=== PATIENT | male | born 1960 | race Caucasian/White ===

== ENCOUNTER 2019-10-27 13:00 | Emergency (ER) | payer BC, SELFPAY ==
[2019-10-27 13:38] VITALS: BP 142/85; PULSE 83; RESP 20; TEMP 36.8; O2SAT 98; BMI 29.5
[2019-10-27 13:40] VITALS: BP 142/85; PULSE 83; RESP 20; TEMP 36.8; O2SAT 98; BMI 29.6
--- NOTE | 2019-10-27 14:16 | HMH.EDUTC ---
[facility] Disposition Clinical Impression: Corneal abrasion, right Qualifiers: Encounter type: initial encounter Qualified Code(s): S05.01XA - Injury of conjunctiva and corneal abrasion without foreign body, right eye, initial encounter Disposition: Home, Self-Care Condition on Discharge: Good Instructions: DI for Corneal Abrasion, Corneal Abrasion Additional Instructions: Don't wear your contacts for at least another week. Use the Sulfacetamide eye drops as directed that I gave to you. Apply 2 drops to the right eye four times per day for the next 7 days. Follow up with your regular doctor. Follow up with your eye doctor. If you have any worsening symtoms, please go to the ER. Referrals: Greg Aguilar MD [Primary Care Provider] - Time of Disposition: 14:35 Medical Decision Making - Medical Records Medical records reviewed: No: I reviewed the patient's medical records. - Sharif Inquiry Pt receiving controlled substance: No Vital Signs: 10/27/19 13:38 10/27/19 14:40 Temperature 98.2 F 98.2 F Temperature Source Oral Pulse Rate 83 Pulse Rate [Left Brachial] 83 Respiratory Rate 20 20 Blood Pressure 142/85 H Blood Pressure [Left Arm] 142/85 H Blood Pressure Mean [Left Arm] 104 Blood Pressure Source [Left Arm] Automatic Cuff Blood Pressure Position [Left Arm] Sitting 02 Sat by Pulse Oximetry 98 Oxygen Delivery Method Room Air Orders (Tests/Meds): ED MEDICATIONS Discontinued Medications Generic Name Dose Route Start Last Admin Trade Name Freq PRN Reason Stop Dose Admin Eye Irrigation Solution 120 ml 10/27/19 14:10/27/19 14:53 Eye Wash Irrigation Soln 118ml Bottle OP 10/27/19 14:30 1 applicatio ONCE ONE Administration Fluorescein Sodium 1 mg 10/27/19 14:10/27/19 14:52 Fluorescein Sodium 1mg Strip OP 10/27/19 14:30 1 mg ONCE ONE Administration Sulfacetamide Sodium 0 ml 10/27/19 14:10/27/19 14:53 Sulf-10% Opth Soln 15ml OP 10/27/19 14:30 2 drops ONCE ONE Administration Tetracaine HCl 0 ml 10/27/19 14:10/27/19 14:53 Tetracaine 0.5% Ophth Solution 15ml OP 10/27/19 14:30 1 drop ONCE ONE Administration [facility] HPI - General Stated complaint: pain in eye Time Seen by Provider: 10/27/19 14:16 Mode of Arrival: Ambulatory Source of Information: Patient Limitations: No Limitations Description of Symptoms (Recalled from Triage Doc. by RN): PATIENT STATES THAT HIS MASK RUBBED HIS RIGHT EYE YESTERDAY, AND SINCE THEN HE HAS C/O REDNESS, PAIN, ITCHING, AND SENSITIVITY TO LIGHT IN THAT EYE. NO OTHER PROBLEMS NOTED - History of Present Illness Provider Complaint: He states that 2 days ago, he accidentily poked himself in the right eye with his face mask. Since then he has had photosensitivity of the eye and redness of the eye. He denies any decreased vision. - Related Data Allergies Allergy/AdvReac Type Severity Reaction Status Date / Time oxycodone [OXYCODONE] Allergy Unknown Verified 10/27/19 13:40 [facility] History - Hepatitis A Screen Attestation statement:: This patient has been screened for Hepatitis A risk factors. I have reviewed the patient's past medical history: Yes Medical History: Reports:: Cancer (SKIN), Diabetes Mellitus Type 2 Denies:: Diabetes Mellitus Type 1, Hypertension, MRSA Laterality Cases: Bilateral: Other Other Surgeries: Yes: Other Amputation: No Fractures: No - Social History Smoking Status: Never smoker Alcohol Intake: never Substance Use Type: denies use Occupational Status: other Housing: house Household Members: family Family Hx:: Cancer, Diabetes ROS Obtained: Yes All systems reviewed & no additional complaints - Constitutional Constitutional: Denies chills, Denies fever(s) - Eyes Eyes: Reports as per HPI Physical Exam - General General appearance: alert, in no apparent distress - Head Head exam: atraumatic, normocephalic, normal inspection - Eye Eye exa
[2019-10-27 14:40] VITALS: BP 142/85; PULSE 83; RESP 20; TEMP 36.8; O2SAT 98
== END 2019-10-27 14:54 | disposition home or self-care (01) ==
LOC: ER 13:18 → UTC 13:22
PROVIDERS: Emergency Provider Nurse Practitioner Family; PCP Family Medicine
DX: S05.01XA Injury of conjunctiva and corneal abrasion without foreign body, right eye, initial encounter (principal); W22.8XXA Striking against or struck by other objects, initial encounter; E11.9 Type 2 diabetes mellitus without complications; Z88.5 Allergy status to narcotic agent
CPT/HCPCS: 99201

== ENCOUNTER → 2020-06-27 10:01 | Outpatient (CLI) | payer BC, SELFPAY ==
[2020-06-27 11:08] LABS: Basophils # 0.1 K/mm3 (0-0.2); Basophils % 0.8 % (0.1-2.0); Eosinophils # 0.2 K/mm3 (0.0-0.4); Eosinophils % 2.7 % (0.1-12.0); Hematocrit 45.9 % (42.0-52.0); Hemoglobin 15.6 g/dL (14.1-18.0); Lymphocytes # 2.2 K/mm3 (0.7-4.5); Lymphocytes % 29.9 % (10-50); Mean Corpuscular Hemoglobin 30.8 pg (27.0-31.2); Mean Corpuscular Volume 90.6 fl (80-94); Mean Platelet Volume 7.6 fl (7.4-10.4); Monocytes # 0.4 K/mm3 (0.1-1.0); Monocytes % 5.7 % (1.7-9.3); Neutrophils # 4.5 K/mm3 (1.8-7.8); Neutrophils % 60.9 % (37.0-80.0); Platelet Count 261 K/mm3 (142-424); Red Blood Count 5.06 M/mm3 (4.60-6.20); Red Cell Distribution Width 14.1 % (11.5-17.5); White Blood Count 7.5 K/mm3 (4.8-10.8)
== END ==
PROVIDERS: PCP Family Medicine; Visit Provider Family Medicine
DX: Z20.822 Contact with and (suspected) exposure to COVID-19 (principal)
CPT/HCPCS: 36415; 85025; 87275; 87276; U0003

== ENCOUNTER 2021-05-03 05:35 | Observation (INO) | payer BC, SELFPAY ==
[2021-05-03] VITALS (30 sets, daily range): BP systolic 110–186; BP diastolic 64–115; PULSE 65–91; RESP 12–21; TEMP 36.7–37.4; O2SAT 90–98; BMI 29.5; BMI 29.9
--- NOTE | 2021-05-03 | IR_ITS ---
APPROVED REPORT Patient Location: Inpatient Bun Icer: NATALYA Anne RT (R) PROCEDURES Left heart catheterization Left ventriculogram Selective coronary angiogram Drug-eluting stent deployment to the proximal mid and distal dominant right coronary in a contiguous manner Drug-eluting stent deployment to the proximal and mid LAD in a contiguous manner Angioplasty to a large first diagonal artery INDICATION Coronary artery disease, Unstable angina/acute coronary syndrome, Informed consent was obtained prior to the procedure. COMPLICATIONS NONE Estimated Blood Loss: LESS THAN 10 ML TECHNIQUE One percent lidocaine used to anesthetize the right anterior aspect of the wrist. The right radial artery was accessed via the Seldinger technique. A 6 Wolof sheath was placed in the right radial artery. 2.5 mg of verapamil, 800 mcg of nitroglycerin, 1mg Lidocaine and 5000 U Heparin were given through the arterial sheath. The trap catheter was also used to perform left heart catheterization, left ventriculogram and selective coronary angiogram. At the end of the diagnostic angiogram therapeutic heparin was administered giving a therapeutic ACT and a Poppa 1 guide catheter was placed on the right coronary artery where a Choice PT extra-support wire was placed distally. A 3.5 x 38 mm resolute Jber stent was deployed at 20 vernon reducing the severe stenosis to 0%. An additional 3.5 x 26 mm resolute Jber stent was placed proximal to this yet still overlapping and deployed at 24 vernon reducing the stenosis. VALENCIA-3 flow was present before and after the procedure. At the end the procedure the apparatus was removed from the right coronary artery and placed in the left anterior descending artery where a wire was placed down the LAD. A 3 mm x 38 mm dioxn point drug-eluting stent was then deployed at 20 vernon reducing the stenosis to 0%. Distally there was additional stenosis at the first diagonal artery bifurcation therefore a 3 mm x 23 mm dixon point drug-eluting stent was then deployed at 20 vernon distal to the first stent yet still overlapping its distal aspect. The balloon was brought back and deployed at 22 vernon to mesh the 2 stents. An additional Choice PT wire was placed into the first diagonal artery where a 2.5 x 12 mm balloon was deployed at 14 vernon for 30 seconds reducing the stenosis to 0%. VALENCIA-3 flow was present before and after the procedure. After achieving excellent angiograph results the apparatus was removed the sheath was removed good hemostasis was achieved using TR banding patient was transferred to the postop already in stable condition ANGIOGRAPHIC RESULTS The left main artery Normal The left anterior descending artery Has a proximal 90% stenosis which extends past a large first diagonal artery of approximately 70 to 80%. The remaining LAD has mild luminal irregularities while the first diagonal artery has an ostial 70 to 80% stenosis The circumflex artery Is a nondominant vessel and has proximal mid vessel and distal diffuse 30% stenoses The right coronary artery Is a large dominant vessel with proximal 30% stenoses mid vessel 30 to 40% stenosis and a distal concentric 70% stenosis The VALENTE ventriculogram reveals Normal 65% The left ventricular end-diastolic pressure Moderate to severely elevated at 25 to 30 mmHg IMPRESSION Severe two-vessel coronary disease as described above with a disease also involving a bifurcating first diagonal artery Successful two-vessel reconstruction as described above Normal ejection fraction Moderate to severely elevated LVEDP consistent with diastolic dysfunction PLAN 1. Dual antiplatelet therapy 2. Risk factor modification 3. Cardiac rehabili
--- NOTE | 2021-05-03 05:29 | ECG_ITS ---
APPROVED REPORT Exam: Resting ECG HR:88 bpm ECG Measurements Heart Rate [address] 158 P 38 QRSd 98 QRS 55 QT 370 T 38 QTc 447 Conclusion Normal sinus rhythm Incomplete right bundle branch block Borderline ECG Electronically signed by : Scout Alegria MD 05/03/2021 14:20:25
[2021-05-03 05:46] LABS: Basophils # 0.1 K/mm3 (0-0.2); Basophils % 1.5 % (0.1-2.0); Eosinophils # 0.2 K/mm3 (0.0-0.4); Eosinophils % 3.4 % (0.1-12.0); Hematocrit 45.4 % (42.0-52.0); Hemoglobin 15.5 g/dL (14.1-18.0); Lymphocytes # 2.5 K/mm3 (0.7-4.5); Lymphocytes % 36.6 % (10-50); Mean Corpuscular HGB Conc 34.2 g/dL (31.8-35.4); Mean Corpuscular Volume 90.8 fl (80-94); Mean Platelet Volume 8.4 fl (7.4-10.4); Monocytes # 0.5 K/mm3 (0.1-1.0); Monocytes % 6.7 % (1.7-9.3); Neutrophils # 3.5 K/mm3 (1.8-7.8); Neutrophils % 51.7 % (37.0-80.0); Platelet Count 297 K/mm3 (142-424); Red Cell Distribution Width 13.2 % (11.5-17.5); White Blood Count 6.9 K/mm3 (4.8-10.8)
--- NOTE | 2021-05-03 05:53 | ECG_ITS ---
APPROVED REPORT Exam: Resting ECG HR:68 bpm ECG Measurements Heart Rate 68 AXES ND 148 P 54 QRSd 96 QRS 30 QT 398 T 30 QTc 423 Conclusion Normal sinus rhythm Normal ECG Electronically signed by : Scout Alegria MD 05/03/2021 14:20:16
[2021-05-03 05:56] LABS: Chloride 94 mmol/L (98-107); Potassium 3.9 mmoL/L (3.5-5.1); Sodium 133 mmol/L (136-145)
[2021-05-03 05:59] LABS: Alanine Aminotransferase 22 U/L (12-78); Albumin Level 4.3 g/dl (3.5-5.0); Albumin/Globulin Ratio 1.4 (1.1-1.8); Alkaline Phosphatase 114 U/L (38-126); Anion Gap 11.9 mEq/L (5-15); Aspartate Amino Transferase 26 U/L (17-59); Bilirubin,Total 0.4 mg/dl (0.2-1.3); Blood Urea Nitrogen 14 mg/dl (9-20); Carbon Dioxide 31 mmol/L (22.0-30.0); Creatinine Clearance Estimated 101 mL/min (50-200); Estimated Glomerular Filt Rate 76 ml/min (>60); GFR (African American) 92 ML/MIN (>60); Total Protein,Serum 7.3 g/dl (6.3-8.2)
--- NOTE | 2021-05-03 05:59 | XR_ITS ---
PROCEDURE INFORMATION: Exam: XR Chest Exam date and time: 05/03/2021 5:59 AM Age: 60 years old Clinical indication: Sternal or substernal pain; Additional info: Cp TECHNIQUE: Imaging protocol: XR of the chest. Views: 1 view. COMPARISON: CR CXR CHEST(2 VIEWS-NOT PORTABLE) 11/05/2014 1:52 PM FINDINGS: Lungs: No focal airspace disease. Pleural spaces: Unremarkable. No pleural effusion. No pneumothorax. Heart/Mediastinum: Cardiomediastinal silhouette is within normal limits. Bones/joints: Unremarkable. IMPRESSION: No acute cardiopulmonary abnormality.
[2021-05-03 06:00] LABS: Calcium 9.4 mg/dl (8.4-10.2)
[2021-05-03 06:05] LABS: C-Reactive Protein 14.3 mg/L (0-4)
[2021-05-03 06:13] LABS: Glucose 438 mg/dl (74-100)
[2021-05-03 06:14] LABS: Troponin I < 0.01 ng/ml (0.00-0.034)
[2021-05-03 06:15] LABS: Coronavirus 19, PCR Not Detected (NotDetected); Influenza A, PCR Not Detected (NotDetected); Influenza B, PCR Not Detected (NotDetected)
[2021-05-03 06:17] LABS: Erythrocyte Sedimentation Rate 24 mm/hr (0-20); Free T4 (Free Thyroxine) 1.19 ng/dl (0.78-2.19); Procalcitonin 0.084 ng/mL (0.0-2.0)
--- NOTE | 2021-05-03 06:20 | PC.NURSE ---
Dr. Rodriguez notified of critical glucose
[2021-05-03 06:32] LABS: Thyroid Stimulating Hormone 1.54 uIU/mL (0.465-4.68)
--- NOTE | 2021-05-03 06:34 | HMH.EDCP ---
ED Disposition Clinical Impression: Chest pain Qualifiers: Chest pain type: precordial pain Qualified Code(s): R07.2 - Precordial pain Diabetes mellitus Qualifiers: Diabetes mellitus type: type 2 Diabetes mellitus laborer marine terminal insulin use: unspecified senior care insulin use status Diabetes mellitus complication status: with other specified complication Qualified Code(s): E11.69 - Type 2 diabetes mellitus with other specified complication Disposition: Admitted as Observation Condition on Discharge: Good - Critical Care Critical Care Time: No Attestation: On 05/03/21, the high probability of a clinically significant, sudden or life threatening deterioration of the following system(s) required my full and direct attention, intervention and personal management. The time I documented below is in addition to time spent performing reported procedures but includes the following listed in this critical care notation. Medical Decision Making - Medical Records Medical records reviewed: Yes: I reviewed the patient's medical records. - Sharif Inquiry Pt receiving controlled substance: No Vital Signs: 05/03/21 05:35 05/03/21 05:50 05/03/21 06:30 Temperature 98.4 F Temperature Source Oral Pulse Rate 65 80 Pulse Rate [Right] 91 H Respiratory Rate 16 16 Blood Pressure 110/64 129/73 Blood Pressure [Right Arm] 186/115 H Blood Pressure Mean 89 Blood Pressure Mean [Right Arm] 138 02 Sat by Pulse Oximetry 97 93 L 93 L Oxygen Delivery Method 05/03/21 06:39 Temperature Temperature Source Pulse Rate 84 Pulse Rate [Right] Respiratory Rate 19 Blood Pressure 144/84 H Blood Pressure [Right Arm] Blood Pressure Mean 94 Blood Pressure Mean [Right Arm] 02 Sat by Pulse Oximetry 94 L Oxygen Delivery Method Room Air - Lab Data Lab results reviewed: Yes: I reviewed the patient's lab results. Lab Results 05/03/21 05:41: WBC 6.9, RBC 5.00, Hgb 15.5, Hct 45.4, MCV 90.8, MCH 31.0, MCHC 34.2, RDW 13.2, Plt Count 297, MPV 8.4, Neut % (Auto) 51.7, Lymph % (Auto) 36.6, [place] % (Auto) 6.7, Eos % (Auto) 3.4, Baso % (Auto) 1.5, Neut # (Auto) 3.5, Lymph # (Auto) 2.5, [place] # (Auto) 0.5, Eos # (Auto) 0.2, Baso # (Auto) 0.1, ESR 24 H 05/03/21 05:41: Sodium 133 L, Potassium 3.9, Chloride 94 L, Carbon Dioxide 31 H, Anion Gap 11.9, BUN 14, Creatinine 1.00, Estimated Creat Clear 101, Estimated GFR 76, Est GFR ( Amer) 92, Glucose 438 H*, Calcium 9.4, Total Bilirubin 0.4, AST 26, ALT 22, Alkaline Phosphatase 114, Troponin I < 0.01, C-Reactive Protein 14.3 H, Total Protein 7.3, Albumin 4.3, Globulin 3.0, Albumin/Globulin Ratio 1.4, TSH 1.54 05/03/21 05:41: Free T4 1.19 05/03/21 05:41: Procalcitonin 0.084 05/03/21 05:41: Hemoglobin A1c > 14.0 H 05/03/21 06:05: SARS-CoV-2 (PCR) Not detected, Influenza A Untype (PCR) Not detected, Influenza Type B (PCR) Not detected Result diagrams: 05/03/21 05:41 05/03/21 05:41 Orders (Tests/Meds): ED MEDICATIONS Generic Name Dose Route Start Last Admin Trade Name Freq PRN Reason Stop Dose Admin Sodium Chloride 1,000 mls @ 999 mls/hr 05/03/21 05:45 05/03/21 05:44 Sod Chlor 0.9% 1000ml Bag IV 05/03/21 06:45 999 mls/hr .Q1H1M AMADEO Administration Discontinued Medications Generic Name Dose Route Start Last Admin Trade Name Freq PRN Reason Stop Dose Admin Aspirin 324 mg 05/03/21 05:40 05/03/21 05:44 Aspirin 81mg Chewable Tablet PO 05/03/21 05:41 324 mg ONCE ONE Administration Nitroglycerin 0.4 mg 05/03/21 05:40 05/03/21 05:45 Nitroglycerin 0.4mg Sl Tablet SL 05/03/21 05:41 0.4 mg ONCE ONE Administration Nitroglycerin 1 gm 05/03/21 06:37 05/03/21 06:38 Nitroglycerin 1 Gm Ointment TD 05/03/21 06:38 1 gm ONCE ONE Administration ORDERS Category Date Time Status Troponin I Q3H Lab 05/03/21 08:45 Ordered Troponin I Q3H Lab 05/03/21 11:45 Ordered - Radiology Data #1 Image(s): Chest Image Reviewed: Yes I have reviewed ra
[2021-05-03 06:38] LABS: Hemoglobin A1C > 14.0 % (4.0-6.0)
--- NOTE | 2021-05-03 06:44 | PC.NURSE ---
paged dr pulido @ this time
--- NOTE | 2021-05-03 06:48 | PC.NURSE ---
charles on phone with dr pulido @ this time
--- NOTE | 2021-05-03 07:06 | PC.NURSE ---
Report called to 2nd floor nurse Marie Maldonado RN
--- NOTE | 2021-05-03 07:20 | HMH.PHAINT ---
MEDICATION RECONCILIATION COMPLETED ON PATIENT USING EXTERNAL FILL HISTORY FROM PHARMACY. -KENNY PACE, BENID
--- NOTE | 2021-05-03 07:24 | PC.NURSE ---
pt was accepted by [facility] per Dr[facility] Rodriguez
--- NOTE | 2021-05-03 07:41 | CA_ITS ---
APPROVED REPORT EXAM: Comprehensive 2D, Doppler, and color-flow Echocardiogram Tipple Mechanic: Vonda Rdz, RCS, RVS Ht: 5 ft 9 in Wt: 203lbs BSA: 2.08 BP: 144/84 mmHg Indications: CP, HTN, DM, Family Hx-HD 2D Dimensions Aortic Root 0.00 cm M: 3.1 - 3.7 LA Volume 35.50 mL Left Atrium 3.03 cm M: 3.0 - 4.0 LA Volume Index 17.06 mL/m2 (M/F) 16-34 LVOT 1.98 cm (M/F) 1.5-2.5 M-Mode Dimensions RVDd 2.09 cm (0.9-2.6) LA Diam 3.59 cm (1.9-4.0) LVDd 4.83 cm (3.5-5.7) Ao Diam 3.27 cm (2.0-3.7) LVDs 2.78 cm (3.5-5.7) IVSd 1.05 cm (0.6-1.1) PWd 1.13 cm (0.6-1.1) EF (Teich) 73.40% EPSs 0.24 cm FS 42.40% EDV (Teich) 109.10 mL TAPSE 2.39 (<1.7) ESV (Teich) 29.00 mL LV Diastology E Decel Time 183.00 (160-240 msec) E/A Ratio 0.93 MED E' 6.50 (< 7 cm/sec) MED A' 11.50 cm/s E'/MED E' Ratio 11.17 (>14) LAT E' 10.20 (<10 cm/sec) LAT A' 12.90 cm/s E/LAT E' Ratio 7.12 (>14) Aortic Valve LVOT Max 153.00 (70-110 cm/s) LVOT VTI 25.06 cm AoV Peak Guillermo. 174.00 (50-130 cm/s) AO Peak GR. 12.20 mmHg AO Mean GR. 5.90 (<5 mmHg) AO VTI 27.43 (18-25 cm) DANII (VTI) 2.81 (2.5-4.5 cm2) Mitral Valve MV A Velocity 78.00 (40-130 cm/s) E/A Ratio 0.93 MV Decel. Time 183.00 (160-240 ms) Pulmonary Valve PV Peak Velocity 109.00 (50-150 cm/s) Tricuspid Valve TR P. Velocity 182.00 cm/s Left Ventricle Left atrium is mildly enlarged, left ventricle is normal size, mild concentric left ventricular hypertrophy, visually estimated ejection fraction 55% with no regional wall motion abnormality, grade 1 diastolic dysfunction seen without tissue Doppler evidence of raise left atrial pressure. Right Ventricle Right atrium and right ventricle are normal size and contractility. Aortic Valve Aortic valve is minimally thickened and fibrosed, there is no aortic stenosis or aortic insufficiency. Mitral Valve Mitral valve is grossly normal, there is trace mitral regurgitation. Tricuspid Valve Tricuspid grossly normal, there is trace tricuspid regurgitation, tricuspid regurgitation jet velocity is inadequate for calculation of the right ventricular systolic pressure. Pulmonic Valve Pulmonic valve is poorly visualized. Great Vessels Aortic root is normal size. Inferior vena cava normal size with normal inspiratory collapse. Pericardium No significant pericardial effusion noted. Conclusion 1. Normal left ventricular size, mild concentric left ventricular hypertrophy, visually estimated ejection fraction 55% with no regional wall motion abnormality, grade 1 diastolic dysfunction seen without tissue Doppler evidence of raise left atrial pressure. 2. Trace mitral and tricuspid regurgitation. 3. No significant pericardial effusion noted. 4. Inferior vena cava is normal size with normal inspiratory collapse. Electronically signed by : Valdemar Quevedo MD 05/03/2021 20:29:11
--- NOTE | 2021-05-03 09:29 | HMH.CNCARD ---
History of Present Illness Consult date: 05/03/21 Requesting physician: Greg Aguilar Consult reason: chest pain Chief complaint: unstable angina History of present illness: 60-year-old male admitted to [facility] with unstable angina on 05/03/21. Patient states prior to arriving to the ED, he was having chest tightness for the past 1 to 2 days. Patient states throughout the night the chest tightness has progressively becoming worse which was accompanied with dyspnea. Patient states once he arrived to the ED and was given a nitroglycerin, his chest pain was relieved. Patient denies chest pain, tightness or pressure at this time. Patient denies dyspnea. Patient states he has been under a lot of stress at home and states he does that this is mostly due to stress. Patient does have a history of diabetes type 2 which is uncontrolled at this time. Patient states his diabetes had been controlled but since home stress has become worse, he has not been managing his diabetes very well. Upon his lab results, A1 C was noted to be greater than 14. Glucose was over 400. This is being managed by PCP. Serial troponins were negative x1. Thyroid panel was within normal. Patient denies swelling in the lower extremities. Patient states he has no known history of coronary disease. Patient did state 20 years ago he did undergo left heart catheterization in which he was told his coronary arteries looked good. He was then diagnosed with acid reflux at that time. Patient does have history of hypertension which is controlled. Patient denies tobacco use or alcohol use. Patient denies nausea, vomiting or diarrhea. Chest x-ray revealed no acute cardiopulmonary abnormalities. Initial EKG revealed nonspecific ST and T wave changes with a heart rate of 80 bpm. monitoring engineer reveals sinus rhythm with no ectopy with a heart rate of 78 bpm. Patient states no known history of coronary artery disease and family history. [facility] History I have reviewed the patient's past medical history: Yes Medical History: Reports:: Diabetes Mellitus Type 2, Hypertension Denies:: Cancer, Diabetes Mellitus Type 1, MRSA *Have you ever received a pneumonia vaccine?: No *Have you received a flu vaccine this season?: No Laterality Cases: Bilateral: Other Other Surgeries: Yes: Other Amputation: No Fractures: No - *Social History Smoking Status: Never smoker Alcohol Intake: never Substance Use Type: denies use *Occupational Status:: employed Housing: house Household Members: family *Travel in the last 8 weeks: Outside the [facility] Family Hx:: Cancer, Diabetes Meds Home Medications Medication Instructions Recorded Confirmed Type Trazodone HCl 100 mg PO HS 05/03/21 05/03/21 History Allergies Allergy/AdvReac Type Severity Reaction Status Date / Time oxycodone [OXYCODONE] Allergy Unknown Verified 10/27/19 13:40 Exam Vital signs and Labs for Last 24 Hours: Temp Pulse Resp BP Pulse Ox 98.4 F 86 21 146/75 H 95 05/03/21 08:03 05/03/21 08:03 05/03/21 08:03 05/03/21 08:03 05/03/21 07:37 Laboratory Results - last 24 hr 05/03/21 05:41: WBC 6.9, RBC 5.00, Hgb 15.5, Hct 45.4, MCV 90.8, MCH 31.0, MCHC 34.2, RDW 13.2, Plt Count 297, MPV 8.4, Neut % (Auto) 51.7, Lymph % (Auto) 36.6, [place] % (Auto) 6.7, Eos % (Auto) 3.4, Baso % (Auto) 1.5, Neut # (Auto) 3.5, Lymph # (Auto) 2.5, [place] # (Auto) 0.5, Eos # (Auto) 0.2, Baso # (Auto) 0.1, ESR 24 H 05/03/21 05:41: Sodium 133 L, Potassium 3.9, Chloride 94 L, Carbon Dioxide 31 H, Anion Gap 11.9, BUN 14, Creatinine 1.00, Estimated Creat Clear 101, Estimated GFR 76, Est GFR ( Amer) 92, Glucose 438 H*, Calcium 9.4, Total Bilirubin 0.4, AST 26, ALT 22, Alkaline Phosphatase 114, Troponin I < 0.01, C-Reactive Protein 14.3 H, Total Protein 7.3, Albumin 4.3, Globulin 3.0, Albumin/Globulin Ratio 1.4, TSH 1.54 05/03/21 05:41: Free T4 1.19 05/03/21 05:41: Procalcitonin 0.08
[2021-05-03 09:52] LABS: Troponin I < 0.01 ng/ml (0.00-0.034)
[2021-05-03 11:35] LABS: Troponin I < 0.01 ng/ml (0.00-0.034)
[2021-05-03 14:24] LABS: CATHL Activated Clotting Time > 400 SEC (74-125)
--- NOTE | 2021-05-03 15:13 | HMH.HP ---
*Admission Date: 05/03/21 <Mary Huitron - 05/03/21 15:45> *Chief complaint: chest pain <Mary Huitron - 05/03/21 15:45> *History of present illness: History of present illness: 60-year-old male admitted to [facility] with unstable angina on 05/03/21. Patient states prior to arriving to the ED, he was having chest tightness for the past 1 to 2 days. Patient states throughout the night the chest tightness has progressively becoming worse which was accompanied with dyspnea. Patient states once he arrived to the ED and was given a nitroglycerin, his chest pain was relieved. Patient denies chest pain, tightness or pressure at this time. Patient denies dyspnea. Patient states he has been under a lot of stress at home and states he does that this is mostly due to stress. Patient does have a history of diabetes type 2 which is uncontrolled at this time. Patient states his diabetes had been controlled but since home stress has become worse, he has not been managing his diabetes very well. Upon his lab results, A1 C was noted to be greater than 14. Glucose was over 400. This is being managed by PCP. Serial troponins were negative x1. Thyroid panel was within normal. Patient denies swelling in the lower extremities. Patient states he has no known history of coronary disease. Patient did state 20 years ago he did undergo left heart catheterization in which he was told his coronary arteries looked good. He was then diagnosed with acid reflux at that time. Patient does have history of hypertension which is controlled. Patient denies tobacco use or alcohol use. Patient denies nausea, vomiting or diarrhea. Chest x-ray revealed no acute cardiopulmonary abnormalities. Initial EKG revealed nonspecific ST and T wave changes with a heart rate of 80 bpm. monitoring coordinator reveals sinus rhythm with no ectopy with a heart rate of 78 bpm. Patient states no known history of coronary artery disease and family history. The above as per cardiology Mr. Cash is a 60-year-old male with a history of GERD, hypertension, sleep apnea, and hyperuricemia who presented to [facility] for evaluation after ongoing chest discomfort throughout the night. See above note by cardiology. At the time of this exam patient is comfortable and sitting on the side of the bed eating his breakfast. He denies chest pain and shortness of breath. Cardiology has seen him and a cardiac cath has been planned. Laboratory data reveals a normal CBC. Glucose is elevated at 438 with an A1c greater than 14. Troponin I is normal. Chest x-ray reveals no acute cardiopulmonary abnormality. Echocardiogram is pending. EKG shows normal sinus rhythm, incomplete right bundle branch block. <Mary Huitron 05/03/21 15:45> [facility] History Medical History: Reports:: Diabetes Mellitus Type 2, Gastroesophageal Reflux Disease(GERD), Hypertension Denies:: Cancer, Diabetes Mellitus Type 1, MRSA <ElanaMary 05/03/21 15:45> *Have you ever received a pneumonia vaccine?: No <Mary Huitron 05/03/21 15:45> *Have you received a flu vaccine this season?: No <Mary Huitron 05/03/21 15:45> Comment:: Allergies, sleep apnea, sinus issues. Gout <ElanaMary 05/03/21 15:45> Laterality Cases: Bilateral: Other <Mary Huitron 05/03/21 15:45> Other Surgeries: Yes: Other <Mary Huitron 05/03/21 15:45> Amputation: No <Mary Huitron 05/03/21 15:45> Fractures: No <Mary Huitron 05/03/21 15:45> Comment: Sinus cyst removed; tubes placed in ears multiple times. Right shoulder surgery in 2008. 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 <Mary Huitron 05/03/21 15:45> - *Social History Smoking Status: Never smoker <Mary Huitron 05/03/21 15:45> Alcohol Intake: never <Mary Huitron 05/03/21 15:45> Substance Use Type: denies use, prescription drug <Mary Huitron 05/03/21 15:45> *Occupational Status:: employed <Mary Huitron 05/03/21 15:45> [employer]
[2021-05-03 17:33] LABS: POC Glucose,Bedside 397 (70-110)
--- NOTE | 2021-05-03 18:27 | PC.NURSE ---
Patient was an admit from the ER to room 215. Patient is NSR on the monitor and on room air. Patient is up ad-onesimo. Cardiology performed a heart cath, patient had 4 stents placed. Right radial site, clean dry and intact. 16 ml of iar removed from radial band. Alert and oriented times four. Call light and phone in reach and bed in lowest position. Will continue to monitor.
[2021-05-03 21:37] LABS: POC Glucose,Bedside 266 (70-110)
--- NOTE | 2021-05-03 22:22 | HMH.PHAVTE ---
[facility] Pharmacy VTE Monitoring - Patient Demographics Admission date: 05/03/21 Report Date: 05/03/21 Time: 22:22 Allergies/Adverse Reactions: Patient Allergies oxycodone [OXYCODONE] Allergy (Unknown, Verified 10/27/19 13:40) Height: 1.75 m Weight: 92.136 kg Patient Problems: Current Active Problems Chest pain (Acute) Diabetes mellitus (Acute) HTN (hypertension) (Acute) GERD (gastroesophageal reflux disease) (Acute) Uncontrolled diabetes mellitus (Acute) Situational stress (Acute) - VTE Risk Labs: VTE Related Lab Results Hgb 15.5 g/dL (14.1-18.0) 05/03/21 05:41 Hct 45.4 % (42.0-52.0) 05/03/21 05:41 Plt Count 297 K/mm3 (142-424) 05/03/21 05:41 BUN 14 mg/dl (9-20) 05/03/21 05:41 Creatinine 1.00 mg/dl (0.66-1.25) 05/03/21 05:41 Estimated Creat Clear 101 mL/min (50-200) 05/03/21 05:41 VTE Risk Level: Low Risk Clinical Trial Participant: No - Prophylaxis VTE Prophylaxis Ordered?: Yes Types of VTE Prophylaxis: Pharmacological Pharmacologic Type: Other (BRILINTA)
[2021-05-04] VITALS: BP 134/86; PULSE 80; PULSE 81; RESP 19; TEMP 37.2; O2SAT 94
[2021-05-04 04:00] VITALS: BP 140/70; PULSE 80; PULSE 81; RESP 20; TEMP 37.3; O2SAT 100
[2021-05-04 06:18] LABS: Basophils # 0.1 K/mm3 (0-0.2); Basophils % 0.5 % (0.1-2.0); Eosinophils # 0.2 K/mm3 (0.0-0.4); Eosinophils % 1.7 % (0.1-12.0); Hematocrit 40.7 % (42.0-52.0); Hemoglobin 13.9 g/dL (14.1-18.0); Lymphocytes # 1.9 K/mm3 (0.7-4.5); Lymphocytes % 17.2 % (10-50); Mean Corpuscular HGB Conc 34.2 g/dL (31.8-35.4); Mean Corpuscular Volume 90.4 fl (80-94); Mean Platelet Volume 8.7 fl (7.4-10.4); Monocytes # 0.6 K/mm3 (0.1-1.0); Monocytes % 5.6 % (1.7-9.3); Neutrophils # 8.1 K/mm3 (1.8-7.8); Platelet Count 303 K/mm3 (142-424); Red Cell Distribution Width 13.2 % (11.5-17.5); White Blood Count 10.8 K/mm3 (4.8-10.8)
[2021-05-04 06:36] LABS: Anion Gap 6.6 mEq/L (5-15); Blood Urea Nitrogen 11 mg/dl (9-20); Calcium 9.1 mg/dl (8.4-10.2); Carbon Dioxide 30 mmol/L (22.0-30.0); Chloride 101 mmol/L (98-107); Creatinine Clearance Estimated 114 mL/min (50-200); Estimated Glomerular Filt Rate 86 ml/min (>60); GFR (African American) 104 ML/MIN (>60); Glucose 276 mg/dl (74-100); Magnesium 1.8 mg/dl (1.6-2.3); Potassium 4.6 mmoL/L (3.5-5.1); Sodium 133 mmol/L (136-145)
[2021-05-04 07:16] LABS: Cholesterol 180 mg/dl (140-200); HDL Cholesterol 30 mg/dl (40-60); Triglycerides 395 mg/dl (30-150); VLDL Cholesterol 79 mg/dL (0-40)
[2021-05-04 07:27] LABS: Direct LDL Cholesterol 76.35 mg/dL (100-129)
[2021-05-04 08:00] VITALS: BP 120/72; PULSE 90; RESP 18; TEMP 36.7; O2SAT 96
[2021-05-04 08:13] LABS: POC Glucose,Bedside 270 (70-110)
--- NOTE | 2021-05-04 09:11 | HMH.ACPN2 ---
<Mary Huitron - Last Filed: 05/04/21 09:11> Internal Medicine - PN: Subj *Date: 05/04/21 *Time: 09:11 Interval history: Patient denies chest pain and shortness of breath. He is anxious to go home. He slept very little. He is hungry for breakfast and diet has been ordered. He has been out of bed without difficulty. Exam Vital signs and Labs for Last 24 Hours: Temp Pulse Resp BP Pulse Ox 98.0 F 90 18 120/72 96 05/04/21 08:00 05/04/21 08:00 05/04/21 08:00 05/04/21 08:00 05/04/21 08:00 Laboratory Results - last 24 hr 05/03/21 08:45: Troponin I < 0.01 05/03/21 10:54: Troponin I < 0.01 05/03/21 13:26: Activated Clotting Time > 400 H* 05/03/21 17:13: POC Glucose 397 H* 05/03/21 21:04: POC Glucose 266 H 05/04/21 05:35: POC Glucose 270 H 05/04/21 05:50: WBC 10.8 D, RBC 4.50 L, Hgb 13.9 L, Hct 40.7 L, MCV 90.4, MCH 31.0, MCHC 34.2, RDW 13.2, Plt Count 303, MPV 8.7, Neut % (Auto) 75.0, Lymph % (Auto) 17.2, [place] % (Auto) 5.6, Eos % (Auto) 1.7, Baso % (Auto) 0.5, Neut # (Auto) 8.1 H, Lymph # (Auto) 1.9, [place] # (Auto) 0.6, Eos # (Auto) 0.2, Baso # (Auto) 0.1 05/04/21 05:50: Sodium 133 L, Potassium 4.6, Chloride 101, Carbon Dioxide 30, Anion Gap 6.6, BUN 11, Creatinine 0.90, Estimated Creat Clear 114, Estimated GFR 86, Est GFR ( Amer) 104, Glucose 276 H, Calcium 9.1, Magnesium 1.8 05/04/21 05:50: Triglycerides 395 H, Cholesterol 180, LDL Cholesterol Direct 76.35 L, VLDL Cholesterol 79 H, HDL Cholesterol 30 L, Cholesterol/HDL Ratio 6.0 H I & O for Last 24 hours: Intake & Output 05/01/21 05/02/21 05/03/21 05/04/21 11:59 11:59 11:59 11:59 Intake Total 0 / 0 600 / 600 Balance 0 / 0 600 / 600 Weight 203 lb 2 oz 202 lb 13.204 oz - Constitutional no acute distress Comments: Sitting on bedside and appears comfortable - *Routine Respiratory Exam Present: crackles (Few crackles in right base) - *Routine Cardiovascular Exam Present: RRR - *Routine Abdominal Exam Present: soft, normoactive bowel sounds. 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 chcf insulin use status Diabetes mellitus complication status: with other specified complication Qualified Code(s): E11.69 - Type 2 diabetes mellitus with other specified complication Category: Medical Code(s): E11.9 - Type 2 diabetes mellitus without complications (4) GERD (gastroesophageal reflux disease) Status: Acute Category: Medical Code(s): K21.9 - Gastro-esophageal reflux disease without esophagitis (5) Uncontrolled diabetes mellitus Status: Acute Category: Medical Code(s): E11.65 - Type 2 diabetes mellitus with hyperglycemia (6) Situational stress Status: Acute Category: Medical Code(s): F43.9 - Reaction to severe stress, unspecified - Assessment and plan all Dx Assessment and Plan for all problems:: Home with cardiology approval. Meds as per cardiology.....diet And compliance have been emphasized with patient <Greg Aguilar - Last Filed: 06/24/21 18:00> Internal Medicine - PN: Subj *Date: 06/24/21 *Time: 17:59 Exam Vital signs and Labs for Last 24 Hours: Temp Pulse Resp BP Pulse Ox 98.0 F 90 18 120/72 96 05/04/21 08:00 05/04/21 08:00 05/04/21 08:00 05/04/21 08:00 05/04/21 08:00 Assessment and Plan (1) HTN (hypertension) Status: Chronic Qualifiers: Hypertension type: primary hypertension
--- NOTE | 2021-05-04 09:27 | HMH.PNCARD ---
Subjective Date: 05/04/21 Time: 09:00 Principal diagnosis: Angina Interval history: 60-year-old male admitted to [facility] on [facility] 03, 2021 with unstable angina. Patient did undergo left heart catheterization yesterday which revealed severe two-vessel coronary artery disease involving the bifurcation first diagonal artery. 6 full two-vessel reconstruction. Patient was noted to have moderate to severely elevated LVEDP consistent with diastolic dysfunction. Patient was prescribed Lasix and Aldactone due to diastolic dysfunction and moderate to severely elevated LVEDP. Patient is on standard medications for heart disease and diastolic dysfunction. Patient does have uncontrolled diabetes. Lengthy discussion with patient regarding the need to control his diabetes due to the effects of uncontrolled diabetes on the heart. Patient verbalized understanding and states due to stress within his family, he has not taken very good care of himself. Right radial access from heart cath noted with dressing dry and intact. Patient denies pain of the right wrist. bus monitor reveals sinus rhythm with a heart rate of 78 bpm. Blood pressure stable. Echocardiogram was performed which revealed EF 55% with no regional wall motion abnormality, grade 1 diastolic dysfunction. Trace MR and TR noted. Patient was also started on statin for hyperlipidemia. LDL goal <55. Encouraged weight loss and exercise. Echo:Conclusion 1. Normal left ventricular size, mild concentric left ventricular hypertrophy, visually estimated ejection fraction 55% with no regional wall motion abnormality, grade 1 diastolic dysfunction seen without tissue Doppler evidence of raise left atrial pressure. 2. Trace mitral and tricuspid regurgitation. 3. No significant pericardial effusion noted. 4. Inferior vena cava is normal size with normal inspiratory collapse. [facility]: ANGIOGRAPHIC RESULTS The left main artery Normal The left anterior descending artery Has a proximal 90% stenosis which extends past a large first diagonal artery of approximately 70 to 80%. The remaining LAD has mild luminal irregularities while the first diagonal artery has an ostial 70 to 80% stenosis The circumflex artery Is a nondominant vessel and has proximal mid vessel and distal diffuse 30% stenoses The right coronary artery Is a large dominant vessel with proximal 30% stenoses mid vessel 30 to 40% stenosis and a distal concentric 70% stenosis The VALENTE ventriculogram reveals Normal 65% The left ventricular end-diastolic pressure Moderate to severely elevated at 25 to 30 mmHg IMPRESSION Severe two-vessel coronary disease as described above with a disease also involving a bifurcating first diagonal artery Successful two-vessel reconstruction as described above Normal ejection fraction Moderate to severely elevated LVEDP consistent with diastolic dysfunction PLAN 1. Dual antiplatelet therapy 2. Risk factor modification 3. Cardiac rehabilitation 4. Beta-blockers and JACKELINE inhibitors 5. LDL less than 55 to be achieved with high intensity statin 6. Avoidance of tobacco products Exam Vital signs and Labs for Last 24 Hours: Temp Pulse Resp BP Pulse Ox 98.0 F 90 18 120/72 96 05/04/21 08:00 05/04/21 08:00 05/04/21 08:00 05/04/21 08:00 05/04/21 08:00 Laboratory Results - last 24 hr 05/03/21 08:45: Troponin I < 0.01 05/03/21 10:54: Troponin I < 0.01 05/03/21 13:26: Activated Clotting Time > 400 H* 05/03/21 17:13: POC Glucose 397 H* 05/03/21 21:04: POC Glucose 266 H 05/04/21 05:35: POC Glucose 270 H 05/04/21 05:50: WBC 10.8 D, RBC 4.50 L, Hgb 13.9 L, Hct 40.7 L, MCV 90.4, MCH 31.0, MCHC 34.2, RDW 13.2, Plt Count 303, MPV 8.7, Neut % (Auto) 75.0, Lymph % (Auto) 17.2, [place] % (Auto) 5.6, Eos % (Auto) 1.7, Baso % (Auto) 0.5, Neut # (Auto) 8.1 H, Lymph # (Auto) 1.9, [place] # (Auto) 0.6, Eos # (Auto) 0.2, Baso # (Auto) 0.1 05/04/21 05:50: Sodium 133 L, P
--- NOTE | 2021-05-04 09:34 | HMH.PHACLD ---
Sea Cash has received discharge medication counseling on the following medications: PATIENT IS BEING DISCHARGED WITH PRESCRIPTIONS FOR ASPIRIN 81 MG EC DAILY, BRILINTA 90 MG BID, CARVEDIOL 12.5 MG BID, LISINOPRIL 5 MG BID, AND ATORVASTATIN 40 MG HS. MD ALSO STARTED LASIX 40 MG DAILY, SYNJARDY XR MG, AND SPIRONOLACTONE 25 MG DAILY.
--- NOTE | 2021-05-09 14:59 | HMH.DCSUM ---
General - General Admission date:: 05/03/21 <Greg Aguilar - 07/03/21 22:17> 05/03/21 <BartoloromeliaKaley - 05/09/21 15:07> Discharge date: 06/03/21 <Kaley Moore - 05/09/21 15:07> HPI HPI: History of present illness: 60-year-old male admitted to [facility] with unstable angina on 05/03/21. Patient states prior to arriving to the ED, he was having chest tightness for the past 1 to 2 days. Patient states throughout the night the chest tightness has progressively becoming worse which was accompanied with dyspnea. Patient states once he arrived to the ED and was given a nitroglycerin, his chest pain was relieved. Patient denies chest pain, tightness or pressure at this time. Patient denies dyspnea. Patient states he has been under a lot of stress at home and states he does that this is mostly due to stress. Patient does have a history of diabetes type 2 which is uncontrolled at this time. Patient states his diabetes had been controlled but since home stress has become worse, he has not been managing his diabetes very well. Upon his lab results, A1 C was noted to be greater than 14. Glucose was over 400. This is being managed by PCP. Serial troponins were negative x1. Thyroid panel was within normal. Patient denies swelling in the lower extremities. Patient states he has no known history of coronary disease. Patient did state 20 years ago he did undergo left heart catheterization in which he was told his coronary arteries looked good. He was then diagnosed with acid reflux at that time. Patient does have history of hypertension which is controlled. Patient denies tobacco use or alcohol use. Patient denies nausea, vomiting or diarrhea. Chest x-ray revealed no acute cardiopulmonary abnormalities. Initial EKG revealed nonspecific ST and T wave changes with a heart rate of 80 bpm. cardiac monitor technician reveals sinus rhythm with no ectopy with a heart rate of 78 bpm. Patient states no known history of coronary artery disease and family history. The above as per cardiology Mr. Cash is a 60-year-old male with a history of GERD, hypertension, sleep apnea, and hyperuricemia who presented to [facility] for evaluation after ongoing chest discomfort throughout the night. See above note by cardiology. At the time of this exam patient is comfortable and sitting on the side of the bed eating his breakfast. He denies chest pain and shortness of breath. Cardiology has seen him and a cardiac cath has been planned. Laboratory data reveals a normal CBC. Glucose is elevated at 438 with an A1c greater than 14. Troponin I is normal. Chest x-ray reveals no acute cardiopulmonary abnormality. Echocardiogram is pending. EKG shows normal sinus rhythm, incomplete right bundle branch block. <Kaley Moore - 05/09/21 15:07> Hospital Course Hospital Course: The patient was admitted and cardiology was consulted. They wanted to perform a heart cath. It showed severe two-vessel coronary artery disease and they performed successful two-vessel reconstruction. There was a moderate to severely elevated LVEDP consistent with diastolic dysfunction. Cardiology wanted the patient on dual antiplatelet therapy along with beta-blockers and JACKELINE inhibitor's and cardiac rehab. They also started the patient on Lasix 40 mg daily along with Aldactone 25 mg daily due to the diastolic dysfunction. They encouraged weight loss and exercise and wanted to follow-up with the patient in 1 week. He did well overnight and denied any chest pain or shortness of breath. By 05/04/2021, he was anxious to go home and was up and out of bed without difficulty. He was stable to be discharged and will follow up with cardiology. Of note, his echo did show an EF of 55%. <Kaley Moore - 05/09/21 15:07> Objective Vital signs: Temp Pulse Resp BP Pulse Ox 98.0 F 90 18 120/72 96 05/04/21 08:00 05/04/21 08:00 05/04/21 08:00
== END 2021-05-04 09:35 | disposition home or self-care (01) ==
LOC: ER 06:30 → 2ND 06:58
PROVIDERS: Internal Medicine; Admitting Provider Family Medicine; Emergency Provider Emergency Medicine; PCP Family Medicine; Visit Provider Family Medicine
DX: R07.9 Chest pain, unspecified (principal); I25.110 Atherosclerotic heart disease of native coronary artery with unstable angina pectoris; I10 Essential (primary) hypertension; E11.65 Type 2 diabetes mellitus with hyperglycemia; Z79.84 Long term (current) use of oral hypoglycemic drugs; F43.9 Reaction to severe stress, unspecified; Z79.899 Other long term (current) drug therapy; Z20.822 Contact with and (suspected) exposure to COVID-19
CPT/HCPCS: 36415; 71045; 80048; 80053; 80061; 82962; 83036; 83735; 84145; 84439; 84443; 84484; 85025; 85347; 85651; 86140; 92920; 92928; 93005; 93306; 93458; 96374; 99152; 99153; 99284; C1725; C1760; C1769; C1875; C1876; C9600; C9803; G0378; J1644; Q9967; U0003; U0005

== ENCOUNTER → 2021-05-10 08:15 | Outpatient (CLI) | payer BC, SELFPAY ==
[2021-05-10 08:36] LABS: Basophils # 0.1 K/mm3 (0-0.2); Eosinophils # 0.2 K/mm3 (0.0-0.4); Eosinophils % 2.3 % (0.1-12.0); Hematocrit 44.1 % (42.0-52.0); Hemoglobin 15.4 g/dL (14.1-18.0); Lymphocytes % 20.9 % (10-50); Mean Corpuscular HGB Conc 34.9 g/dL (31.8-35.4); Mean Corpuscular Hemoglobin 31.1 pg (27.0-31.2); Mean Corpuscular Volume 89.1 fl (80-94); Mean Platelet Volume 7.9 fl (7.4-10.4); Monocytes # 0.6 K/mm3 (0.1-1.0); Monocytes % 6.5 % (1.7-9.3); Neutrophils # 6.7 K/mm3 (1.8-7.8); Neutrophils % 69.3 % (37.0-80.0); Platelet Count 297 K/mm3 (142-424); Red Blood Count 4.95 M/mm3 (4.60-6.20); Red Cell Distribution Width 12.9 % (11.5-17.5); White Blood Count 9.7 K/mm3 (4.8-10.8)
[2021-05-10 08:42] LABS: Chloride 100 mmol/L (98-107); Potassium 5.3 mmoL/L (3.5-5.1); Sodium 137 mmol/L (136-145)
[2021-05-10 08:45] LABS: Anion Gap 14.3 mEq/L (5-15); Blood Urea Nitrogen 33 mg/dl (9-20); Calcium 9.6 mg/dl (8.4-10.2); Carbon Dioxide 28 mmol/L (22.0-30.0); Estimated Glomerular Filt Rate 56 ml/min (>60); GFR (African American) 68 ML/MIN (>60); Glucose 233 mg/dl (74-100)
== END ==
PROVIDERS: Visit Provider Internal Medicine
DX: I25.10 Atherosclerotic heart disease of native coronary artery without angina pectoris (principal); Z95.5 Presence of coronary angioplasty implant and graft
CPT/HCPCS: 36415; 80048; 85025

== ENCOUNTER 2021-05-10 09:54 | Outpatient (RCR) | payer BC, SELFPAY | END 2021-08-31 14:24 | disposition home or self-care (01) | LOC: PT 09:54 | PROVIDERS: Visit Provider Internal Medicine | DX: I25.10 Atherosclerotic heart disease of native coronary artery without angina pectoris (principal); Z95.5 Presence of coronary angioplasty implant and graft | CPT/HCPCS: 93798 ==

== ENCOUNTER → 2021-05-31 14:32 | Outpatient (CLI) | payer BC, SELFPAY ==
[2021-05-31 15:38] LABS: Anion Gap 11.4 mEq/L (5-15); Blood Urea Nitrogen 21 mg/dl (9-20); Calcium 9.8 mg/dl (8.4-10.2); Carbon Dioxide 35 mmol/L (22.0-30.0); Chloride 91 mmol/L (98-107); Estimated Glomerular Filt Rate 68 ml/min (>60); GFR (African American) 83 ML/MIN (>60); Glucose 329 mg/dl (74-100); Potassium 4.4 mmoL/L (3.5-5.1); Sodium 133 mmol/L (136-145)
== END ==
PROVIDERS: Visit Provider Urology
DX: I25.118 Atherosclerotic heart disease of native coronary artery with other forms of angina pectoris (principal); I10 Essential (primary) hypertension; E78.2 Mixed hyperlipidemia; M79.10 Myalgia, unspecified site
CPT/HCPCS: 36415; 80048

== ENCOUNTER → 2021-06-15 12:28 | Outpatient (CLI) | payer BC, SELFPAY ==
[2021-06-15 14:10] LABS: Basophils # 0.1 K/mm3 (0-0.2); Basophils % 0.7 % (0.1-2.0); Eosinophils # 0.1 K/mm3 (0.0-0.4); Eosinophils % 1.1 % (0.1-12.0); Hematocrit 46.6 % (42.0-52.0); Hemoglobin 15.2 g/dL (14.1-18.0); Lymphocytes # 1.6 K/mm3 (0.7-4.5); Lymphocytes % 12.7 % (10-50); Mean Corpuscular HGB Conc 32.7 g/dL (31.8-35.4); Mean Corpuscular Hemoglobin 30.8 pg (27.0-31.2); Mean Corpuscular Volume 94.4 fl (80-94); Mean Platelet Volume 7.8 fl (7.4-10.4); Monocytes # 0.8 K/mm3 (0.1-1.0); Monocytes % 6.2 % (1.7-9.3); Neutrophils % 79.2 % (37.0-80.0); Platelet Count 338 K/mm3 (142-424); Red Blood Count 4.93 M/mm3 (4.60-6.20); Red Cell Distribution Width 13.8 % (11.5-17.5); White Blood Count 12.6 K/mm3 (4.8-10.8)
== END ==
PROVIDERS: PCP Family Medicine; Visit Provider Family Medicine
DX: Z20.822 Contact with and (suspected) exposure to COVID-19 (principal)
CPT/HCPCS: 36415; 85025; 87275; 87276; C9803; U0003; U0005

== ENCOUNTER → 2021-06-19 11:03 | Outpatient (CLI) | payer BC, SELFPAY | PROVIDERS: PCP Family Medicine; Visit Provider Family Medicine | DX: Z20.822 Contact with and (suspected) exposure to COVID-19 (principal) | CPT/HCPCS: C9803; U0003; U0005 ==

== ENCOUNTER 2021-10-08 17:18 | Emergency (ER) | payer BC, SELFPAY ==
[2021-10-08 17:45] VITALS: BP 128/85; PULSE 91; RESP 16; TEMP 37; O2SAT 98; BMI 27.2
--- NOTE | 2021-10-08 17:45 | HMH.EDGENADL ---
ED Disposition Condition on Discharge: Good - Critical Care Critical Care Time: No <VijayIsauro - Last Filed: 10/08/21 19:59> <Alex Rodriguez - Last Filed: 10/08/21 21:31> Clinical Impression: Constipation Qualifiers: Constipation type: unspecified constipation type Qualified Code(s): K59.00 - Constipation, unspecified Abdominal pain Qualifiers: Abdominal location: generalized Qualified Code(s): R10.84 - Generalized abdominal pain Syncope Qualifiers: Syncope type: vasovagal syncope Qualified Code(s): R55 - Syncope and collapse Disposition: Home, Self-Care Instructions: DI for Constipation Additional Instructions: MiraLAX as prescribed. Referrals: Greg Aguilar MD [Primary Care Provider] - Attestation: On 10/08/21, the high probability of a clinically significant, sudden or life threatening deterioration of the following system(s) required my full and direct attention, intervention and personal management. The time I documented below is in addition to time spent performing reported procedures but includes the following listed in this critical care notation. Medical Decision Making - Sharif Inquiry Pt receiving controlled substance: No - Lab Data Result diagrams: 10/08/21 18:55 10/08/21 18:55 - Reevaluation(s) Time: 20:00 <SteframonIsauro - Last Filed: 10/08/21 19:59> - Lab Data Lab results reviewed: Yes: I reviewed the patient's lab results. Result diagrams: 10/08/21 18:55 10/08/21 18:55 - CT Data CT Scan: Abdomen, Pelvis Time Received: 21:[address] Reviewed: Yes: I have viewed the radiologist's interpretation Preliminary Findings: Abnormal (no obstr ) <Alex Rodriguez - Last Filed: 10/08/21 21:31> Vital Signs: 10/08/21 17:45 10/08/21 19:06 10/08/21 20:03 Temperature 98.6 F Temperature Source Oral Pulse Rate 85 93 H Pulse Rate [Radial] 91 H Respiratory Rate 16 Blood Pressure 130/80 142/84 H Blood Pressure [Right Arm] 128/85 Blood Pressure Mean [Right Arm] 99 Blood Pressure Position [Right Arm] Sitting 02 Sat by Pulse Oximetry 98 94 L 94 L Oxygen Delivery Method Room Air Room Air Room Air - Lab Data Lab Results 10/08/21 18:55: WBC 13.9 H, RBC 5.26, Hgb 16.5, Hct 49.2, MCV 93.6, MCH 31.4 H, MCHC 33.5, RDW 14.1, Plt Count 365, MPV 8.2, Neut % (Auto) 82.0 H, Lymph % (Auto) 10.9, [place] % (Auto) 5.0, Eos % (Auto) 0.9, Baso % (Auto) 1.2, Neut # (Auto) 11.4 H, Lymph # (Auto) 1.5, [place] # (Auto) 0.7, Eos # (Auto) 0.1, Baso # (Auto) 0.2 10/08/21 18:55: Sodium 135 L, Potassium 4.4, Chloride 98, Carbon Dioxide 29, Anion Gap 12.4, BUN 26 H, Creatinine 1.30 H, Estimated Creat Clear 73, Estimated GFR 56 L, Est GFR ( Amer) 68, Glucose 322 H, Calcium 9.9, Total Bilirubin 0.5, AST 24, ALT 21, Alkaline Phosphatase 92, Total Protein 7.3, Albumin 3.9, Globulin 3.4 H, Albumin/Globulin Ratio 1.1 Orders (Tests/Meds): ED MEDICATIONS Generic Name Dose Route Start Last Admin Trade Name Freq PRN Reason Stop Dose Admin Sodium Chloride 1,000 mls @ 999 mls/hr 10/08/21 19:00 10/08/21 19:03 Sod Chlor 0.9% 1000ml Bag IV 10/08/21 20:00 999 mls/hr .Q1H1M AMADEO Administration Sodium Chloride 10 ml 10/08/21 18:47 Sodium Chloride 0.9% 10ml Flush Syringe IV 11/07/21 18:46 NEEDED PRN Maintain IV Site Discontinued Medications Generic Name Dose Route Start Last Admin Trade Name Freq PRN Reason Stop Dose Admin Iopamidol 75 ml 10/08/21 20:49 10/08/21 20:50 Iopamidol-370 (76%);100ml Bottle IV 10/08/21 20:50 75 ml ONCE ONE Administration Magnesium Citrate 1 bot 10/08/21 17:51 10/08/21 18:04 Magnesium Citrate 10oz Bottle PO 10/08/21 17:52 1 bot ONCE ONE Administration Ondansetron HCl 4 mg 10/08/21 18:47 10/08/21 19:03 Ondansetron 4mg/2ml Vial IV 10/08/21 18:48 4 mg ONCE ONE Administration Sodium Chloride 10 ml 10/08/21 20:49 10/08/21 20:50 Sodium Chloride 0.9% 10ml Syr (Rad Only) IV
--- NOTE | 2021-10-08 19:04 | PC.NURSE ---
PT WENT TO BATHROOM BECAME VERY NAUSEOUS IV AND MEDS GIVEN
[2021-10-08 19:06] VITALS: BP 130/80; PULSE 85; O2SAT 94
[2021-10-08 19:13] LABS: Chloride 98 mmol/L (98-107); Potassium 4.4 mmoL/L (3.5-5.1); Sodium 135 mmol/L (136-145)
[2021-10-08 19:16] LABS: Alanine Aminotransferase 21 U/L (12-78); Albumin Level 3.9 g/dl (3.5-5.0); Albumin/Globulin Ratio 1.1 (1.1-1.8); Alkaline Phosphatase 92 U/L (38-126); Anion Gap 12.4 mEq/L (5-15); Aspartate Amino Transferase 24 U/L (17-59); Bilirubin,Total 0.5 mg/dl (0.2-1.3); Blood Urea Nitrogen 26 mg/dl (9-20); Calcium 9.9 mg/dl (8.4-10.2); Carbon Dioxide 29 mmol/L (22.0-30.0); Creatinine Clearance Estimated 73 mL/min (50-200); Estimated Glomerular Filt Rate 56 ml/min (>60); GFR (African American) 68 ML/MIN (>60); Globulin 3.4 g/dL (1.3-3.2); Glucose 322 mg/dl (74-100); Total Protein,Serum 7.3 g/dl (6.3-8.2)
--- NOTE | 2021-10-08 19:37 | ECG_ITS ---
APPROVED REPORT Exam: Resting ECG HR:89 bpm ECG Measurements Heart Rate 89 AXES AZ 162 P 70 QRSd 93 QRS 41 QT 356 T 63 QTc 403 Conclusion SINUS RHYTHM INDETERMINATE AXIS LOW QRS VOLTAGE IN PRECORDIAL LEADS [QRS DEFLECTION < 1.0 mV IN CHEST LEADS] INCOMPLETE RIGHT BUNDLE BRANCH BLOCK [90+ ms QRS DURATION, TERMINAL R IN V1/V2, 40+ ms S IN I/aVL/V4/V5/V6] BORDERLINE ECG UNCONFIRMED REPORT Electronically signed by : Scout Alegria MD 10/09/2021 09:03:21
[2021-10-08 19:43] LABS: Basophils # 0.2 K/mm3 (0-0.2); Basophils % 1.2 % (0.1-2.0); Eosinophils # 0.1 K/mm3 (0.0-0.4); Eosinophils % 0.9 % (0.1-12.0); Hematocrit 49.2 % (42.0-52.0); Hemoglobin 16.5 g/dL (14.1-18.0); Lymphocytes # 1.5 K/mm3 (0.7-4.5); Lymphocytes % 10.9 % (10-50); Mean Corpuscular HGB Conc 33.5 g/dL (31.8-35.4); Mean Corpuscular Hemoglobin 31.4 pg (27.0-31.2); Mean Corpuscular Volume 93.6 fl (80-94); Mean Platelet Volume 8.2 fl (7.4-10.4); Monocytes # 0.7 K/mm3 (0.1-1.0); Neutrophils # 11.4 K/mm3 (1.8-7.8); Platelet Count 365 K/mm3 (142-424); Red Blood Count 5.26 M/mm3 (4.60-6.20); Red Cell Distribution Width 14.1 % (11.5-17.5); White Blood Count 13.9 K/mm3 (4.8-10.8)
--- NOTE | 2021-10-08 19:58 | CT_ITS ---
PROCEDURE INFORMATION: Exam: CT Abdomen And Pelvis With Contrast Exam date and time: 10/08/2021 8:36 PM Age: 61 years old Clinical indication: Constipation; Patient HX: PT had shoulder surgery 10/05/21 now constipated; Additional info: Abdo pain, constipated TECHNIQUE: Imaging protocol: Computed tomography of the abdomen and pelvis with contrast. Radiation optimization: All CT scans at this facility use at least one of these dose optimization techniques: automated exposure control; mA and/or kV adjustment per patient size (includes targeted exams where dose is matched to clinical indication); or iterative reconstruction. Contrast material: ISOVUE; Contrast volume: 75 ml; Contrast route: IV; COMPARISON: [facility]SWO CT LUMBAR SPINE W/O CONTRAST 05/17/2015 6:53 AM FINDINGS: Lungs: There is an area of consolidation or atelectasis identified within the medial aspect of the right lower lobe. Pleural calcification is noted along the medial aspect of the right posterior costophrenic angle. Heart: There are calcifications identified within the coronary arteries. Liver: The liver is normal in size and attenuation. No intrahepatic biliary dilitation. Gallbladder and bile ducts: Normal. No calcified stones. No ductal dilation. Gallbladder wall thickness is normal. Pancreas: Normal. No ductal dilation. Spleen: Normal. No splenomegaly.There is a small accessory spleen adjacent to the [place] spleen. This is felt to be of no clinical significance. Adrenal glands: Normal. No mass. Kidneys and ureters: There is a 2.0 cm stable exophytic cortical cyst arising from the posterior interpolar region of the left kidney. No hydronephrosis. Stomach and bowel: Rectal and colonic fecal stasis. No obstruction. No mucosal thickening. Small bowel mesentery is normal. Appendix: Unremarkable. Intraperitoneal space: Unremarkable. No free air. No significant fluid collection. Vasculature: Arterial atheromatous calcifications are noted. No abdominal aortic aneurysm. Lymph nodes: Unremarkable. No enlarged lymph nodes. Urinary bladder: Unremarkable as visualized. Prominent distention noted. Reproductive: Unremarkable as visualized. Bones/joints: There are mild degenerative changes noted within the lower lumbar spine. No acute fracture. Soft tissues: Small bilateral inguinal hernias that contain fat. IMPRESSION: 1. There is an area of consolidation or atelectasis identified within the medial aspect of the right lower lobe. 2. Rectal and colonic fecal stasis. No obstruction. 3. Small bilateral inguinal hernias that contain fat.
[2021-10-08 20:03] VITALS: BP 142/84; PULSE 93; O2SAT 94
[2021-10-08 20:30] VITALS: BP 135/78; PULSE 93; O2SAT 95
--- NOTE | 2021-10-08 20:45 | PC.NURSE ---
pt back from scan
[2021-10-08 21:29] VITALS: BP 142/84; PULSE 93; RESP 18; TEMP 36.8; O2SAT 99
== END 2021-10-08 22:02 | disposition home or self-care (01) ==
PROVIDERS: Emergency Provider Emergency Medicine; PCP Family Medicine
DX: K59.00 Constipation, unspecified (principal); R10.84 Generalized abdominal pain; R55 Syncope and collapse; E11.9 Type 2 diabetes mellitus without complications; K21.9 Gastro-esophageal reflux disease without esophagitis; I25.10 Atherosclerotic heart disease of native coronary artery without angina pectoris; Z88.6 Allergy status to analgesic agent
CPT/HCPCS: 74177; 80053; 85025; 93005; 96361; 96374; 96375; 99284; J2405; Q9967

== ENCOUNTER → 2021-12-16 09:01 | Outpatient (CLI) | payer BC, SELFPAY ==
[2021-12-16 10:14] LABS: Hemoglobin A1C 12.9 % (4.0-6.0)
[2021-12-16 10:28] LABS: Alanine Aminotransferase 20 U/L (12-78); Albumin Level 3.8 g/dl (3.5-5.0); Albumin/Globulin Ratio 1.3 (1.1-1.8); Alkaline Phosphatase 77 U/L (38-126); Anion Gap 11.1 mEq/L (5-15); Aspartate Amino Transferase 25 U/L (17-59); Bilirubin,Total 0.4 mg/dl (0.2-1.3); Blood Urea Nitrogen 16 mg/dl (9-20); Calcium 9.3 mg/dl (8.4-10.2); Carbon Dioxide 28 mmol/L (22.0-30.0); Chloride 100 mmol/L (98-107); Estimated Glomerular Filt Rate 86 ml/min (>60); GFR (African American) 104 ML/MIN (>60); Globulin 2.9 g/dL (1.3-3.2); Glucose 219 mg/dl (74-100); Potassium 5.1 mmoL/L (3.5-5.1); Sodium 134 mmol/L (136-145); Total Protein,Serum 6.7 g/dl (6.3-8.2)
[2021-12-16 10:59] LABS: Prostate Specific Ag Screen 1.1 ng/ml (0.0-4.0)
== END ==
PROVIDERS: PCP Family Medicine; Visit Provider Family Medicine
DX: E11.9 Type 2 diabetes mellitus without complications (principal); Z79.84 Long term (current) use of oral hypoglycemic drugs; Z12.5 Encounter for screening for malignant neoplasm of prostate
CPT/HCPCS: 36415; 80053; 83036; G0103

== ENCOUNTER 2021-12-24 11:09 | Emergency (ER) | payer BC, SELFPAY ==
[2021-12-24 11:10] VITALS: BP 134/90; PULSE 83; RESP 18; TEMP 36.8; O2SAT 98; BMI 30.5
[2021-12-24 12:06] VITALS: BP 134/90; PULSE 83; RESP 19; TEMP 36.8; O2SAT 98
--- NOTE | 2021-12-24 12:18 | HMH.EDUTC ---
[facility] [place] Clinical Impression: Viral syndrome Disposition: Home, Self-Care Condition on Discharge: Good Instructions: DI for Viral Syndrome, DI for COVID-19 (Suspected or Confirmed ), Preventing the Spread of Coronavirus Discharge Instructions Additional Instructions: *Monitor Temp, Over the counter Motrin or Tylenol as directed/as needed Tylenol every 4 hours and Motrin every 6 hours (as long as your family doctor has told you that you can take it) for fever or pain. and straight to ER if unable to lower temp less than 101.0 after medication given *Warm fluids like tea with honey may help to soothe the throat *Sleep elevated *Humidifier/Vaporizer Follow up IMMEDIATELY for new or worsening symptoms or no Noticeable improvement over the next 48-72 hours. 911 for difficulty breathing or swallowing You were tested for today for COVID19 your test result should be back in the next 24-48 hours, you may check your results on the [facility] My Health Portal Make sure to take your Vitamins Vit. C Vit D and Zinc if you can take them Referrals: Greg Aguilar MD [Primary Care Provider] - As needed Forms: Work/School Release Medical Decision Making - Sharif Inquiry Pt receiving controlled substance: No Sharif was queried for this patient: No Vital Signs: 12/24/21 11:10 12/24/21 12:06 Temperature 98.3 F 98.3 F Temperature Source Oral Oral Pulse Rate 83 Pulse Rate [Left Radial] 83 Respiratory Rate 18 19 Blood Pressure 134/90 Blood Pressure [Right Arm] 134/90 Blood Pressure Mean [Right Arm] 104 Blood Pressure Source Automatic Cuff Blood Pressure Source [Right Arm] Automatic Cuff Blood Pressure Position Sitting Blood Pressure Position [Right Arm] Sitting 02 Sat by Pulse Oximetry 98 Oxygen Delivery Method Room Air Room Air Orders (Tests/Meds): ORDERS Category Date Time Status Covid-19 Nasal PCR ([facility]) Routine Lab 12/24/21 11:20 Re[place] [facility] [place] - General Stated complaint: covid test Time Seen by Provider: 12/24/21 11:20 Mode of Arrival: Ambulatory Source of Information: Patient Limitations: No Limitations Description of Symptoms (Recalled from Triage Doc. by RN): feeling bad last night, low grade fever and some body aches HEENT Symptoms (Recalled from RN notes): Yes Resp Symptoms (Recalled from RN notes): No Skin Symptoms (Recalled from RN notes): No MS Symptoms (Recalled from RN notes): No Functional Status (Recalled from RN notes): na - History of Present Illness Provider Complaint: Patient states that he started feeling bad last night with bodyaches, chills and low grade fever States that this morning he was feeling a little better but still having chills and he took an at home COVID test and it was positive so he came in to get checked - Related Data Home Medications Medication Instructions Recorded Confirmed Trazodone HCl 100 mg PO HS 05/03/21 05/31/21 gabapentin 100 mg capsule 100 mg PO HS cap 05/31/21 05/31/21 Previous Rx's Medication Instructions Recorded Aspirin [Aspirin 81mg EC Tab] 81 mg PO DAILY #30 tab 05/04/21 Empagliflozin/Metformin HCl 1 each PO DAILY #30 tab 05/04/21 [Synjardy Xr 25-1,000 mg Tablet] furosemide 40 mg tablet 40 mg PO DAILY #30 tab 05/10/21 clopidogrel 75 mg tablet 75 mg PO DAILY #30 tab 06/07/21 carvedilol 12.5 mg tablet See Rx Instructions .ROUTE 11/29/21 .COMPLEX #60 tab spironolactone 25 mg tablet See Rx Instructions .ROUTE 11/29/21 .COMPLEX #30 tab Allergies Allergy/AdvReac Type Severity Reaction Status Date / Time oxycodone [OXYCODONE] Allergy Unknown Verified 05/31/21 13:54 - Worker's Comp Is this a Worker's Comp case?: No [facility] History - Hepatitis A Screen Attestation statement:: This patient has been screened for Hepatitis A risk factors. I have reviewed the patient's past medical history: Yes Medical History: Reports:: Diabetes Mellitus Type 2, Gastroesophageal Reflux Disease(GERD), Hyperte
== END 2021-12-24 12:07 | disposition home or self-care (01) ==
PROVIDERS: Emergency Provider Nurse Practitioner; PCP Family Medicine
DX: U07.1 COVID-19 (principal); B34.9 Viral infection, unspecified; R50.9 Fever, unspecified; M79.10 Myalgia, unspecified site; M10.9 Gout, unspecified; I10 Essential (primary) hypertension; K21.9 Gastro-esophageal reflux disease without esophagitis; G47.30 Sleep apnea, unspecified; Z79.02 Long term (current) use of antithrombotics/antiplatelets; Z79.82 Long term (current) use of aspirin; Z79.84 Long term (current) use of oral hypoglycemic drugs; Z79.899 Other long term (current) drug therapy; Z88.5 Allergy status to narcotic agent; Z88.6 Allergy status to analgesic agent; Z95.5 Presence of coronary angioplasty implant and graft; Z80.9 Family history of malignant neoplasm, unspecified; Z83.3 Family history of diabetes mellitus
CPT/HCPCS: 99213; C9803; G0463; U0003; U0005

== ENCOUNTER → 2022-08-25 15:47 | Outpatient (CLI) | payer BC, SELFPAY ==
--- NOTE | 2022-08-25 15:52 | XR_ITS ---
PROCEDURE INFORMATION: Exam: XR Right Hip Exam date and time: 08/25/2022 4:10 PM Age: 62 years old Clinical indication: Hip pain; Right hip; Additional info: General pain in hip TECHNIQUE: Imaging protocol: Radiologic exam of the right hip. Views: 2 or 3 views hip with pelvis when performed. COMPARISON: CT ABDOMEN PELVIS W CON 10/08/2021 8:36 PM FINDINGS: Bones/joints: Mild joint space narrowing demonstrated bilaterally. Focus of calcification adjacent to the right greater trochanter. Soft tissues: Unremarkable. IMPRESSION: 1. Mild degenerative osteoarthritis. 2. No evidence of acute osseous injury. 3. Findings compatible with tendinopathy related changes involving the right gluteal tendons. Consider follow-up with magnetic resonance imaging.
== END ==
PROVIDERS: PCP Family Medicine; Visit Provider Family Medicine
DX: M25.551 Pain in right hip (principal)
CPT/HCPCS: 73502

== ENCOUNTER 2022-10-06 09:55 | Day surgery (SDC) | payer BC, SELFPAY ==
[2022-09-15 14:28] VITALS: BMI 26.5
[2022-10-06] VITALS (10 sets, daily range): BP systolic 87–131; BP diastolic 54–83; PULSE 67–85; RESP 14–18; TEMP 36.4–36.9; O2SAT 93–100
--- NOTE | 2022-10-06 11:04 | P.PN_ITS ---
[facility] Disclaimer: The information contained in this section may have been updated after the patient was seen, as this information can be updated by other users. Surgical History (Updated 09/15/22 @ 14:25 by Deb Trivedi RN) Hx of shoulder surgery Family History (Updated 09/15/22 @ 14:26 by Deb Trivedi RN) Other Family history of Alzheimer's disease Family history of cancer Family history of diabetes mellitus type II Social History (Updated 09/15/22 @ 14:26 by Deb Trivedi RN) Smoking Status: Never smoker alcohol intake: never substance use type: denies use and prescription drug current occupational status: employed Travel in the last 8 weeks: Inside the [place] household members: none housing: house lives independently: Yes marital status: education level: vocational caffeine: No special alisha needs: No agree to transfusion: No do you feel safe at home: Yes victim of physical abuse: No victim of emotional abuse: No victim of sexual abuse: No would you like helpful sources: No [facility] Anesthesia Checklist Patient Identification Patient Identification: Arm Band and Verbal (Name & ) Structural Data Admitted From: Home Planned Operative Procedure/s: Colonoscopy Consent for Planned Operative Procedure(s) Verified: Yes NPO Status Verified Time NPO: 00:00 Airway Assessment C-Spine Mobility Assessed: Yes TMJ Mobility Assessed: Yes Dentition: Good Dentition Neurological Assessment Level of Consciousness: Awake Hx Seizures: No Numbness or tingling in extremities: No Anesthesia Plan Anesthesia Risk discussed: Yes Anesthesia Plan: Verified ASA Class: II Anesthesia Type: MAC
--- NOTE | 2022-10-06 11:31 | HMH.SCOPE ---
Procedure: Date: 10/06/22 Patient Date of :: 1960 Procedure Performed:: Screening colonoscopy Indications:: Screening for colorectal cancer Performing Provider:: Solis Steele MD Referring Provider:: Taylor dick PA-C Sedation:: propofol Procedure:: After placing the patient in the left lateral decubitus position, the colonoscopy was gently inserted into the rectum and under direct visualization advanced to the cecum which was identified by transillumination in the right lower quadrant, identification of the ileocecal valve, appendiceal orifice, and cecal strap. Color, texture, mucosa, and anatomy of the colon were carefully examined with the scope. Findings:: Anal canal: normal Rectum: normal Sigmoid colon: normal without polyps or inflammatory changes Descending colon: normal without polyps or inflammatory changes Splenic flexure: normal Transverse colon: normal without polyps or inflammatory changes Hepatic flexure: normal Ascending colon: normal without polyps or inflammatory changes Cecum: normal Terminal ileum: not visualized Impression: Normal colonoscopy Recommendations:: Follow up examination in about FIVE-YTEN years or so, sooner if clinically indicated. Complications:: None Estimated blood obtained (mL): 0
== END 2022-10-06 13:05 | disposition home or self-care (01) ==
PROVIDERS: PCP Family Medicine; Visit Provider Internal Medicine Gastroenterology
PROC: 0DJD8ZZ Inspection of Lower Intestinal Tract, Via Natural or Artificial Opening Endoscopic (ICD-10-PCS; CPT 45378; principal; 2022-10-06 11:00)
DX: Z12.11 Encounter for screening for malignant neoplasm of colon (principal); Z79.899 Other long term (current) drug therapy
CPT/HCPCS: 45378; J2704

== ENCOUNTER → 2022-11-04 11:14 | Outpatient (CLI) | payer BC, SELFPAY ==
--- NOTE | 2022-11-04 11:26 | ECG_ITS ---
APPROVED REPORT Exam: Resting ECG HR:68 bpm ECG Measurements Heart Rate 68 AXES TN 163 P 61 QRSd 107 QRS 59 QT 388 T 42 QTc 406 Conclusion SINUS RHYTHM INCOMPLETE RIGHT BUNDLE BRANCH BLOCK [90+ ms QRS DURATION, TERMINAL R IN V1/V2, 40+ ms S IN I/aVL/V4/V5/V6] BORDERLINE ECG UNCONFIRMED REPORT Electronically signed by : Scout Alegria MD 11/05/2022 07:02:07
[2022-11-04 12:13] LABS: Basophils # 0.1 K/mm3 (0-0.2); Basophils % 0.9 % (0.1-2.0); Eosinophils # 0.2 K/mm3 (0.0-0.4); Eosinophils % 3.3 % (0.1-12.0); Hematocrit 43.2 % (42.0-52.0); Lymphocytes # 1.9 K/mm3 (0.7-4.5); Lymphocytes % 27.7 % (10-50); Mean Corpuscular HGB Conc 32.4 g/dL (31.8-35.4); Mean Corpuscular Hemoglobin 30.6 pg (27.0-31.2); Mean Corpuscular Volume 94.4 fl (80-94); Monocytes # 0.4 K/mm3 (0.1-1.0); Monocytes % 6.3 % (1.7-9.3); Neutrophils # 4.3 K/mm3 (1.8-7.8); Neutrophils % 61.8 % (37.0-80.0); Platelet Count 246 K/mm3 (142-424); Red Blood Count 4.57 M/mm3 (4.60-6.20); Red Cell Distribution Width 13.8 % (11.5-17.5); White Blood Count 6.9 K/mm3 (4.8-10.8)
[2022-11-04 12:36] LABS: Anion Gap 13.2 mEq/L (5-15); Blood Urea Nitrogen 23 mg/dl (9-20); Calcium 9.1 mg/dl (8.4-10.2); Carbon Dioxide 30 mmol/L (22.0-30.0); Chloride 102 mmol/L (98-107); Estimated Glomerular Filt Rate 76 ml/min (>60); GFR (African American) 92 ML/MIN (>60); Glucose 139 mg/dl (74-100); Potassium 4.2 mmoL/L (3.5-5.1); Sodium 141 mmol/L (136-145)
== END ==
PROVIDERS: PCP Family Medicine; Visit Provider Nurse Practitioner
DX: Z01.818 Encounter for other preprocedural examination (principal); H66.90 Otitis media, unspecified, unspecified ear
CPT/HCPCS: 36415; 80048; 85025; 93005

== ENCOUNTER 2022-11-14 21:24 | Emergency (ER) | payer BC, SELFPAY ==
[2022-11-14 21:26] VITALS: BP 177/84; PULSE 77; RESP 18; TEMP 36.8; O2SAT 99; BMI 26.4
[2022-11-14 21:34] VITALS: BMI 26.4
--- NOTE | 2022-11-14 21:35 | XR_ITS ---
PROCEDURE INFORMATION: Exam: XR Right Hip Exam date and time: 11/14/2022 9:36 PM Age: 62 years old Clinical indication: Hip pain; Right hip TECHNIQUE: Imaging protocol: Radiologic exam of the right hip. Views: 2 or 3 views hip with pelvis when performed. COMPARISON: CR XR HIP RT 2-3V W/PELVIS 08/25/2022 4:10 PM FINDINGS: Bones/joints: The bony pelvis is intact. There is no acute fracture. The SI joints, hips and pubic symphysis are normally aligned. Dedicated images of the right hip demonstrate very mild joint space narrowing. There is no fracture or avascular necrosis. There is mild calcification adjacent to the greater tuberosity consistent with calcific tendinitis. Soft tissues: Unremarkable. IMPRESSION: No acute finding of the pelvis or right hip. Mild degenerative changes of the right hip and findings consistent with gluteal calcific tendinitis.
--- NOTE | 2022-11-14 21:40 | XR_ITS ---
PROCEDURE INFORMATION: Exam: XR Lumbosacral Spine Exam date and time: 11/14/2022 9:36 PM Age: 62 years old Clinical indication: Low back pain TECHNIQUE: Imaging protocol: Radiologic exam of the lumbosacral spine. Views: 2 or 3 views. COMPARISON: CR XR HIP RT 2-3V W/PELVIS 08/25/2022 4:10 PM FINDINGS: Bones/joints: There is a very mild scoliosis convex right centered at L4-L5. There is no compression deformity or spondylolisthesis. Mild degenerative disc disease is noted at L4-L5 and L5-S1. The pedicles are intact throughout. Soft tissues: Unremarkable. IMPRESSION: 1. Very mild scoliosis convex right centered at L4-L5. 2. Mild degenerative disc disease at L4-L5 and L5-S1.
[2022-11-14 22:00] VITALS: BP 163/84; PULSE 71; O2SAT 97
--- NOTE | 2022-11-14 22:17 | HMH.EDLOEX ---
Discharge Plan Disposition Patient Disposition: Home, Self-Care Chief Complaint: Extremity Injury, Lower Prescriptions Prescriptions: No Action fluticasone propionate 50 mcg/actuation spray,suspension 1 spray intranasal DAILY Label Comments: USE 1 SPRAY(S) IN EACH NOSTRIL ONCE DAILY carvedilol 12.5 mg tablet 12.5 mg PO DAILY Rx Instructions: Take 1 tablet by mouth twice daily clopidogrel [Plavix] 75 mg tablet 75 mg PO DAILY aspirin 81 MG tablet,delayed release (DR/EC) 81 mg PO DAILY spironolactone 25 mg tablet 25 mg PO DAILY Rx Instructions: Take 1 tablet by mouth once daily Referrals Follow up/Referrals: Greg Aguilar MD [Primary Care Provider] - See instructions Clinical Impressions Clinical Impression: Hip tendonitis Instructions Patient Instructions: DI for Tendinitis Discharge ED Provider: Michael (ED)Alex Lower Extremity Injury HPI General Chief Complaint: Extremity Injury, Lower Stated Complaint: AO 11/13, right hip pain Time Seen by Provider: 11/14/22 22:17 Mode of Arrival: Wheelchair Source of Information: Patient and Medical Record Limitations: No Limitations Description of Symptoms (Recalled from ER Triage Doc. by RN): pt states currently going to PT for 2 weeks now for rt hipbut today cat was laying on rt foot and pt picked up foot and felt rt hip pain History of Present Illness HPI Narrative: pt has rt hip pain and saw pcp and doing therapy - had acute extension yesterday and has rt outer hip pain complaint: hip injury Onset (ago): day(s) Injury: Right: hip Type of Injury: hyperextension Place: home Severity: moderate Exacerbating factors: weight bearing and movement Associated symptoms: able to partially bear weight Other symptoms: none Related Data Home Medications Medication Instructions Recorded Confirmed aspirin 81 mg tablet,delayed 81 mg PO DAILY prevention 09/15/22 10/25/22 release carvedilol 12.5 mg tablet 12.5 mg PO DAILY htn 09/15/22 10/25/22 clopidogrel 75 mg tablet (Plavix) 75 mg PO DAILY Blood thinner 09/15/22 10/25/22 spironolactone 25 mg tablet 25 mg PO DAILY Fluid 09/15/22 10/25/22 fluticasone propionate 50 1 spray intranasal DAILY 10/25/22 10/25/22 mcg/actuation nasal spray,suspension Allergies Allergy/AdvReac Type Severity Reaction Status Date / Time oxycodone [OXYCODONE] Allergy Unknown Verified 10/25/22 09:20 [facility] Disclaimer: The information contained in this section may have been updated after the patient was seen, as this information can be updated by other users. Medical History (Updated 11/14/22 @ 22:27 by Alex Rodriguez (SHERRI)MD) Chronic ear infection Otalgia, right ear Tympanosclerosis Vertigo Surgical History Hx of shoulder surgery Family History Other Family history of Alzheimer's disease Family history of cancer Family history of diabetes mellitus type II Social History Smoking Status: Never smoker alcohol intake: never substance use type: denies use and prescription drug current occupational status: employed Travel in the last 8 weeks: Inside the [place] household members: none housing: house lives independently: Yes marital status: education level: vocational caffeine: No special alisha needs: No agree to transfusion: No do you feel safe at home: Yes victim of physical abuse: No victim of emotional abuse: No victim of sexual abuse: No would you like helpful sources: No ROS Obtained: Yes All systems reviewed & no additional complaints except as documented Physical Exam General General appearance: alert Head Head exam: normocephalic Eye Eye exam: Present PERRL and EOMI ENT ENT exam: Present mucous membranes moist Neck Nec
--- NOTE | 2022-11-14 22:19 | PC.NURSE ---
in room talking with patient at this time.
[2022-11-14 22:23] VITALS: BP 157/74; PULSE 70; RESP 16; TEMP 36.8; O2SAT 97
--- NOTE | 2022-11-14 22:29 | PC.NURSE ---
PATIENT REFUSED CRUTCHES
== END 2022-11-14 22:30 | disposition home or self-care (01) ==
PROVIDERS: Emergency Provider Emergency Medicine; PCP Family Medicine
DX: M25.551 Pain in right hip (principal); M77.9 Enthesopathy, unspecified; X50.1XXA Overexertion from prolonged static or awkward postures, initial encounter
CPT/HCPCS: 72100; 73502; 96372; 99284

== ENCOUNTER 2022-11-23 09:50 | Day surgery (SDC) | payer BC, SELFPAY ==
[2022-11-22 10:12] VITALS: BMI 26.5
[2022-11-23] VITALS (8 sets, daily range): BP systolic 126–151; BP diastolic 69–92; PULSE 70–79; RESP 16–18; TEMP 36.3–36.7; O2SAT 94–98
--- NOTE | 2022-11-23 11:24 | EXP.OP.NOTE ---
Date of procedure: 11/23/22 Pre-op Diagnosis:: chronic serous otitis media Post-op Diagnosis:: chronic serous otitis media Procedure performed:: bilateral myringotomy with t-tubes Surgeon:: Otis Owen MD [employer] VICE PRESIDENT:: Freddy Flores Anesthesia: LMA Estimated blood loss (mL): 0 Operative findings:: bilateral serous effusions with retracted tympanic membranes, monomeric areas more posterior and inferior on TM bilaterally Operative note:: The patient was brought to the OR and laid in supine position. Mask anesthesia was induced. Patient was prepped and draped in the usual fashion. First in the left ear, myringotomy was made in the anterior-inferior quadrant. A serous effusion was suctioned from the middle ear space. T-tube was placed and then ear drops was instilled into the ear. Then, I turned my attention towards the right ear. Again, a myringotomy was made in the anterior-inferior quadrant. Serous effusion was suctioned from the middle ear space. T-tube was placed and then ear drops was instilled into the ear. Patient was then turned back over to anesthesia to be awoken. Condition: stable Disposition: PACU Complications:: none
--- NOTE | 2022-11-23 11:36 | EXP.ANES.CKL ---
[facility] Disclaimer: The information contained in this section may have been updated after the patient was seen, as this information can be updated by other users. Medical History Chronic ear infection Migraine Otalgia, right ear Skin cancer Sleep apnea Tympanosclerosis Vertigo Surgical History History of coronary artery stent placement History of placement of ear tubes Hx of shoulder surgery Family History Other Family history of Alzheimer's disease Family history of cancer Family history of diabetes mellitus type II Social History Smoking Status: Never smoker alcohol intake: never substance use type: denies use and prescription drug current occupational status: employed Travel in the last 8 weeks: Inside the [employer] household members: none housing: house lives independently: Yes marital status: education level: vocational caffeine: No special alisha needs: No agree to transfusion: No do you feel safe at home: Yes victim of physical abuse: No victim of emotional abuse: No victim of sexual abuse: No would you like helpful sources: No [facility] Anesthesia Checklist Patient Identification Patient Identification: Arm Band Structural Data Admitted From: Home Planned Operative Procedure/s: BMT Consent for Planned Operative Procedure(s) Verified: Yes Verified Documents: Surgical Consent and History and Physical NPO Status Verified Time NPO: 00:00 Additional verifications Anesthesia Reactions: No Hx Blood Transfusions: No Blood Transfusion Reaction: No Airway Assessment C-Spine Mobility Assessed: Yes TMJ Mobility Assessed: Yes Dentition: Good Dentition Neurological Assessment Level of Consciousness: Awake and Alert Anesthesia Plan Anesthesia Risk discussed: Yes Anesthesia Plan: Verified ASA Class: III Anesthesia Type: General
--- NOTE | 2022-11-23 11:37 | EXP.ANES.I ---
[facility] Anesthesia Record Part I Anesthesia Record I Intake, IV Amount: 800 Estimated blood loss (mL): 0 Urine output (mL): 0 Blood Products used (#): none Blood Pressure: 128/69 SaO2: 94 Pulse Rate: 70 Respiratory Rate: 16 Temperature: 98 F Patient is:: Drowsy and Stable Stable to PACU at:: 11:30
--- NOTE | 2022-11-24 09:39 | EXP.ANES.II ---
[facility] Anesthesia Record Part II Anesthesia Record Part II Discharge Time: 12:00 Destination: Surgical Day Care (OP Surgery) PACU nurse assessment reviewed?: Yes Patient Condition:: Good Anesthesia Complications:: None Swallowing reflex intact?: Yes Cyanosis?: No Blood Pressure: 147/76 Pulse Rate: 78 Temperature: 97.9 F Mental Status: Alert & Oriented Pain level:: 0 Nausea and/or vomitting:: None Intake, IV Amount: 0
[2022-11-24 09:40] VITALS: BP 147/76; PULSE 78; TEMP 36.6
== END 2022-11-23 12:30 | disposition home or self-care (01) ==
PROVIDERS: PCP Family Medicine; Visit Provider Student in an Organized Health Care Education/Training Program
PROC: (CPT 69436; principal; 2022-11-23 11:30)
DX: H65.23 Chronic serous otitis media, bilateral (principal)
CPT/HCPCS: 69436; J2405

== ENCOUNTER → 2022-12-08 07:52 | Outpatient (POV) | payer BC, SELFPAY | PROVIDERS: Visit Provider Specialist/Technologist | DX: Z00.00 Encounter for general adult medical examination without abnormal findings (principal) ==

== ENCOUNTER 2023-07-05 10:30 | Outpatient (RCR) | payer BC, SELFPAY ==
--- NOTE | 2023-06-22 15:48 | HMH.PTOPEV ---
PT Outpatient Evaluation Rehab PT Outpatient Evaluation Start: 06/22/23 15:24 Freq: Status: Active Protocol: Document 06/22/23 15:25 PHORNE (Rec: 06/22/23 15:48 PHORNE [id number]) E-signed By Hunter Dc, PT Outpatient Therapy Subjective History Subjective History This is the initial PT eval for Sea Cash, 63 yowm who presents with c/o increased symptoms of vertigo x ~ 1 yr. He reports, I've had these symptoms off and on for years, but usually it gets better after I get ear tubes put in. 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 He reports his current symptoms have not abated since his last set of ear tubes were placed ~ 1 yr ago. He c/o dizziness and outright vertigo that are worse with certain positions, but lasting for hours at a time as long as he stays in that position. He also has worse symptoms at night and with certain quick movements of his head. Hector-Hallpike and horizontal roll testing were performed with no nystagmus noted to either side. Occulomotor testing revealed difficutly and symptom reproduction with R eye superior/inferior tracking and VOR cancellation. New diagnosis of cancer in past 12 No months? Chief Complaint Other Symptoms Relieved By Rest/Positioning Prior Functional Limitations None Current Functional Limitations Sleeping,Recreation Activity Symptom Description Intermittent,Activity Dependent Balance Eval Nystagmus Nystagmus Presence None Oculomotor Gaze Oculomotor Gaze Nml: Vergence Saccades Cover/Uncover Cross Cover Abn: Smooth Pursuit VOR Cancellation Outpatient Therapy Assessment Impairments Problems/Impairmments Impaired Recreational Activities,Impaired Balance, Impaired Self Care/Self Management Prognosis Rehab Potential Good Clinical Impression Consistent with Diagnosis Yes Short Term Goals Number of Weeks 2 Improve Self Care/Self Management Yes: Moderate vertigo with sleeping Patient to be Ind w/ HEP Yes Barrel Scraper Goals Improve Balance Yes Improve Self Care/Self Management Yes: Mild vertigo with sleeping Patient to be Ind w/ Advanced HEP Yes Outpatient Therapy Plan of Care Treatment Plan May Include Therapeutic Exercise Including Home Yes Exercise Program Manual Therapy Techniques Yes Neuromuscular Re-education Yes Therapeutic Activities to Return to Yes Previous Functional/Work Level ADL/Self Care Education Yes Eval/Re-Eval Yes Frequency Times per week 1-2 Duration Number of Weeks 4 Addendums This patient is a candidate for social No or vocational rehab? Patient/Guardian verbally acknowledges Yes understanding of treatment program and consents to further treatment? Patient/Guardian verbally acknowledges Yes understanding of diagnosis, prognosis and goals for treatment? Eval Complexity PT Charges 97194 - High Complexity Shoulder/Elbow Eval Shoulder Objective Measurements Elbow Objective Measurements PHYSICIAN CERTIFICATION: I certify the specified therapy services for Sea Cash are required, authorized, and reviewed every 30 days.
== END 2023-07-05 11:30 | disposition home or self-care (01) ==
LOC: PT 10:30
PROVIDERS: PCP Family Medicine; Visit Provider Nurse Practitioner
DX: R42 Dizziness and giddiness (principal)
CPT/HCPCS: 95992; 97112; 97163

== ENCOUNTER 2023-07-06 07:52 | Outpatient (CLI) | payer BC, SELFPAY ==
--- NOTE | 2023-07-06 08:45 | CA_ITS ---
APPROVED REPORT EXAM: Comprehensive 2D, Doppler, and color-flow Echocardiogram Supervisor Roving Department: Lisa Young CRT Ht: 5 ft 10 in Wt: 198lbs BSA: 2.08 BP: 127/76 mmHg Indications: Abnormal ECG, CAD, Hyperlipidemia, Hypertension/HDD, Stents 2D Dimensions LA Volume 32.70 mL LA Volume Index 15.40 mL/m2 (M/F) 16-34 M-Mode Dimensions RVDd 2.51 cm (0.9-2.6) LA Diam 3.14 cm (1.9-4.0) LVDd 3.90 cm (3.5-5.7) LVDs 2.01 cm (3.5-5.7) IVSd 2.01 cm (0.6-1.1) PWd 1.11 cm (0.6-1.1) EF (Teich) 80.40% FS 48.50% EDV (Teich) 65.90 mL TAPSE 1.94 (<1.7) ESV (Teich) 12.90 mL LV Diastology E Decel Time 293 (160-240 msec) E/A Ratio 0.83 MED A' 8.30 cm/s LAT A' 10.40 cm/s Aortic Valve AO Peak GR. 6.30 mmHg Mitral Valve MV A Velocity 72.0 (40-130 cm/s) E/A Ratio 0.83 Pulmonary Valve PV Peak Velocity 125.0 (50-150 cm/s) Tricuspid Valve TR P. Velocity 211.00 cm/s RAP Estimate 10.00 mmHg RVSP 27.90 mmHg Left Ventricle The left ventricle is normal size. The left ventricular systolic function is normal. The left ventricular ejection fraction is within the normal range. There is increased LV wall thickness. There is normal LV segmental wall motion. Transmitral Doppler flow pattern suggests impaired LV relaxation. LVEF is 55%. Right Ventricle The right ventricle is normal size. The right ventricular systolic function is normal. Atria The left atrium size is normal. The right atrium size is normal. There is no Doppler evidence of interatrial shunt. Aortic Valve The aortic valve is mildly thickened. The aortic valve is trileaflet. There is no aortic valvular stenosis. No aortic regurgitation is present. Mitral Valve The mitral valve is normal in structure. No evidence of mitral valve stenosis. There is no mitral valve regurgitation noted. Tricuspid Valve The tricuspid valve leaflets are thin and pliable. Trace tricuspid regurgitation. There is insufficient TR jet to estimate RVSP. Pulmonic Valve The pulmonary valve is normal in structure. Trace pulmonic regurgitation. Great Vessels The aortic root is normal in size. The ascending aorta is not well visualized. IVC is normal in size and collapses >50% with inspiration. Pericardium There is no pericardial effusion. Other Information Study Quality: Fair Conclusion Normal biventricular systolic function. No significant valvular stenosis or regurgitation. Electronically signed by : Quin Hall MD 07/09/2023 18:56:58
[2023-07-06 09:21] LABS: MANUAL DIFFERENTIAL MANUAL DIFFERENTIAL (MANUAL DIFF)
[2023-07-06 09:37] LABS: Basophils # 0.1 K/mm3 (0-0.2); Basophils % 1.4 % (0.1-2.0); Eosinophils # 0.2 K/mm3 (0.0-0.4); Hemoglobin 15.5 g/dL (14.1-18.0); Lymphocytes # 2.2 K/mm3 (0.7-4.5); Lymphocytes % 32.7 % (10-50); Mean Corpuscular HGB Conc 34.4 g/dL (31.8-35.4); Mean Corpuscular Hemoglobin 32.2 pg (27.0-31.2); Mean Corpuscular Volume 93.4 fl (80-94); Mean Platelet Volume 8.3 fl (7.4-10.4); Monocytes # 0.5 K/mm3 (0.1-1.0); Monocytes % 6.9 % (1.7-9.3); Neutrophils # 3.8 K/mm3 (1.8-7.8); Neutrophils % 55.9 % (37.0-80.0); Platelet Count 283 K/mm3 (142-424); Red Blood Count 4.81 M/mm3 (4.60-6.20); White Blood Count 6.8 K/mm3 (4.8-10.8)
[2023-07-06 09:58] LABS: Alanine Aminotransferase 24 U/L (12-78); Albumin Level 4.1 g/dl (3.5-5.0); Alkaline Phosphatase 57 U/L (38-126); Anion Gap 7.5 mEq/L (5-15); Aspartate Amino Transferase 25 U/L (17-59); Bilirubin,Direct 0.1 mg/dl (0.0-0.4); Bilirubin,Indirect 0.4 mg/dL (0.0-0.9); Bilirubin,Total 0.5 mg/dl (0.2-1.3); Bilirubin,Unconjugated 0.5 mg/dL (0.0-1.1); Blood Urea Nitrogen 21 mg/dl (9-20); Calcium 9.2 mg/dl (8.4-10.2); Carbon Dioxide 32 mmol/L (22.0-30.0); Chloride 102 mmol/L (98-107); Chol/HDL Ratio 4.8 (1-3.5); Cholesterol 157 mg/dl (140-200); Estimated Glomerular Filt Rate 61 ml/min (>60); GFR (African American) 74 ML/MIN (>60); Glucose 167 mg/dl (74-100); HDL Cholesterol 33 mg/dl (40-60); Magnesium 2.3 mg/dl (1.6-2.3); Potassium 4.5 mmoL/L (3.5-5.1); Sodium 137 mmol/L (136-145); Total Protein,Serum 6.7 g/dl (6.3-8.2); Triglycerides 101 mg/dl (30-150); VLDL Cholesterol 20 mg/dL (0-40)
[2023-07-06 10:10] LABS: Direct LDL Cholesterol 97.94 mg/dL (100-129)
[2023-07-06 10:14] LABS: Free Thyroxine Index 2.4 ug/dL (5.93-13.13); T4 (Thyroxine) 7.3 ug/dl (5.53-11.0); Triiodothryronine (T3) Uptake 33 % (23.5-40.5)
[2023-07-06 10:27] LABS: Thyroid Stimulating Hormone 0.55 uIU/mL (0.465-4.68)
[2023-07-06 11:51] LABS: Eosinophils % 2 % (0-3); Lymphocytes % 38 % (10-50); Monocytes % 6 % (2-9); Neutrophils % 54 % (42-76); Total Cells Counted 100
[2023-07-06 11:52] LABS: Platelet Estimate Normal; RBC Morphology Normal
== END 2023-07-06 23:59 ==
PROVIDERS: Internal Medicine; PCP Family Medicine; Visit Provider Nurse Practitioner Family
DX: R07.2 Precordial pain (principal); R42 Dizziness and giddiness; R94.31 Abnormal electrocardiogram [ECG] [EKG]; I25.10 Atherosclerotic heart disease of native coronary artery without angina pectoris; I10 Essential (primary) hypertension; E78.5 Hyperlipidemia, unspecified
CPT/HCPCS: 36415; 80048; 80061; 80076; 83735; 84436; 84443; 84479; 85007; 85014; 85018; 85048; 85049; 93306

== ENCOUNTER 2023-07-21 11:05 | Outpatient (CLI) | payer BC, SELFPAY ==
--- NOTE | 2023-07-21 11:10 | XR_ITS ---
FINAL REPORT CLINICAL HISTORY: SHORTNESS OF BREATH COMPARISON: 05/03/2021 FINDINGS: Two views of the chest were obtained. The heart size and pulmonary vascularity are within normal limits. The mediastinum is normal. No acute pulmonary abnormality is identified. There is no pneumothorax. The bony thorax is intact. IMPRESSION: No active cardiopulmonary disease. Reviewed, Interpreted and Dictated by Salo Demarco III, MD Transcribed by Sondra Jimenez Authenticated and [facility]
== END 2023-07-21 23:59 ==
LOC: RAD 11:05
PROVIDERS: PCP Family Medicine; Visit Provider Physician Assistant
DX: R06.02 Shortness of breath (principal)
CPT/HCPCS: 71046

== ENCOUNTER 2023-11-02 15:40 | Outpatient (CLI) | payer BC, SELFPAY ==
--- NOTE | 2023-11-02 15:46 | XR_ITS ---
FINAL REPORT CLINICAL HISTORY: CHEST WALL PAIN COMPARISON: None FINDINGS: A single view of the chest with 3 views of the left ribs were obtained. There is no acute cardiopulmonary process. No pneumothorax is identified. No displaced rib fracture identified. IMPRESSION: Unremarkable left rib series Reviewed, Interpreted and Dictated by Lisandro Camilo MD Transcribed by Karen Morales Authenticated and [facility]
== END 2023-11-02 23:59 | disposition home or self-care (01) ==
LOC: RAD 15:41
PROVIDERS: PCP Family Medicine; Visit Provider Family Medicine
DX: R07.89 Other chest pain (principal)
CPT/HCPCS: 71101

== ENCOUNTER 2024-01-09 13:16 | Outpatient (CLI) | payer BC, SELFPAY ==
[2024-01-09 13:31] LABS: Basophils # 0.1 K/mm3 (0-0.2); Basophils % 1.1 % (0.1-2.0); Eosinophils # 0.2 K/mm3 (0.0-0.4); Eosinophils % 2.5 % (0.1-12.0); Hematocrit 46.8 % (42.0-52.0); Hemoglobin 15.5 g/dL (14.1-18.0); Lymphocytes # 2.2 K/mm3 (0.7-4.5); Lymphocytes % 30.7 % (10-50); Mean Corpuscular Hemoglobin 32.3 pg (27.0-31.2); Mean Corpuscular Volume 97.9 fl (80-94); Mean Platelet Volume 8.2 fl (7.4-10.4); Monocytes # 0.4 K/mm3 (0.1-1.0); Monocytes % 5.9 % (1.7-9.3); Neutrophils # 4.3 K/mm3 (1.8-7.8); Neutrophils % 59.7 % (37.0-80.0); Platelet Count 303 K/mm3 (142-424); Red Blood Count 4.78 M/mm3 (4.60-6.20); Red Cell Distribution Width 14.1 % (11.5-17.5); White Blood Count 7.1 K/mm3 (4.8-10.8)
[2024-01-09 13:51] LABS: Alanine Aminotransferase 21 U/L (12-78); Albumin Level 4.3 g/dl (3.5-5.0); Alkaline Phosphatase 53 U/L (38-126); Anion Gap 11.5 mEq/L (5-15); Aspartate Amino Transferase 29 U/L (17-59); Bilirubin,Indirect 0.9 mg/dL (0.0-0.9); Bilirubin,Total 0.9 mg/dl (0.2-1.3); Bilirubin,Unconjugated 0.9 mg/dL (0.0-1.1); Blood Urea Nitrogen 18 mg/dl (9-20); Calcium 9.9 mg/dl (8.4-10.2); Carbon Dioxide 30 mmol/L (22.0-30.0); Chloride 100 mmol/L (98-107); Chol/HDL Ratio 4.3 (1-3.5); Cholesterol 198 mg/dl (140-200); Estimated Glomerular Filt Rate 61 ml/min (>60); GFR (African American) 74 ML/MIN (>60); Glucose 129 mg/dl (74-100); HDL Cholesterol 46 mg/dl (40-60); Magnesium 2.2 mg/dl (1.6-2.3); Potassium 4.5 mmoL/L (3.5-5.1); Sodium 137 mmol/L (136-145); Total Protein,Serum 7.5 g/dl (6.3-8.2); Triglycerides 173 mg/dl (30-150); VLDL Cholesterol 35 mg/dL (0-40)
[2024-01-09 14:02] LABS: Direct LDL Cholesterol 111.56 mg/dL (100-129)
[2024-01-09 14:08] LABS: Free T4 (Free Thyroxine) 0.93 ng/dl (0.78-2.19)
[2024-01-09 14:21] LABS: Thyroid Stimulating Hormone 0.52 uIU/mL (0.465-4.68)
== END 2024-01-09 23:59 | disposition home or self-care (01) ==
LOC: LAB 13:17
PROVIDERS: PCP Family Medicine; Visit Provider Physician Assistant
DX: E78.2 Mixed hyperlipidemia (principal); R94.31 Abnormal electrocardiogram [ECG] [EKG]; I11.9 Hypertensive heart disease without heart failure; I25.118 Atherosclerotic heart disease of native coronary artery with other forms of angina pectoris
CPT/HCPCS: 36415; 80048; 80061; 80076; 83735; 84439; 84443; 85025

== ENCOUNTER 2024-08-05 10:36 | Outpatient (CLI) | payer BC, SELFPAY ==
--- NOTE | 2024-08-05 10:40 | XR_ITS ---
FINAL REPORT CLINICAL HISTORY: PAIN RT LEG injury 1 week ago, c/o pain medial side COMPARISON: None FINDINGS: RIGHT TIBIA FIBULA: 3 images of the right tibia and fibula were obtained. There is no evidence of fracture or dislocation. The joint spaces are intact. There is no soft tissue abnormality identified. IMPRESSION: No acute bony abnormality. Reviewed, Interpreted and Dictated by Lisandro Camilo MD Transcribed by Karen Morales Authenticated and [facility]
== END 2024-08-05 23:59 | disposition home or self-care (01) ==
LOC: RAD 10:37
PROVIDERS: PCP Family Medicine; Visit Provider Family Medicine
DX: M79.604 Pain in right leg (principal)
CPT/HCPCS: 73590